=== PATIENT | female | born 1935 | race Caucasian/White ===

== ENCOUNTER → 2020-02-04 12:34 | Outpatient (BNVA) | payer MEDICARE, SELFPAY | PROVIDERS: PCP Internal Medicine; Visit Provider Internal Medicine Cardiovascular Disease | DX: R07.89 Other chest pain (principal); I25.10 Atherosclerotic heart disease of native coronary artery without angina pectoris; I49.1 Atrial premature depolarization; R06.02 Shortness of breath; Z79.82 Long term (current) use of aspirin | CPT/HCPCS: Q3014 ==

== ENCOUNTER 2020-05-23 07:54 | Outpatient (REF) | payer MEDICARE, SELFPAY ==
--- NOTE | 2020-05-24 09:43 | MHC.AU.P13 ---
Adult Audiological Evaluation Date of Visit: 05/23/20 World Geography Teacher Used: Not Applicable Reason for Appointment: Audiologic re-evaluation due to history of fluctuating hearing loss and middle ear dysfunction. Maryam reports she has seen Hose Suspender Cutter Dr. Dayron Leonardo in the past and during the last appointment, placements of pressure equalization tubes was discussed. Maryam was advised to consider this option and contact the office if she wants to pursue in the future. Previous Hearing Test Results: 12/02/2018 [facility] Right ear - Moderate to severe mixed hearing loss with 96% speech understanding at 80 dB HL Left ear - Moderate to severe mixed hearing loss with 92% speech understanding at 90 dB HL Ear History: Previous Ear Surgery: Right ear Ossiculoplasty in 2011 Blocked/Full Sensation in Ear(s): Both Ears Medical History: Medical History: High Blood Pressure Medication List: Metoprolol, Fish Oil, Vitamin D3, Asprin Hearing Instrument History- Right Ear: Medical Insurance Claims Specialist: Kareo Model: OnDeck B 50-P Serial Number: [id number] Battery Size: 13 Repair Warranty: 04/18/2022 Loss and Damage Warranty: 04/18/2020 Dispensed By: [facility] Date of Fittin01/28/2019 Hearing Instrument History- Left Ear: Medical Insurance Claims Specialist: [employer] Model: OnDeck B 50-P Serial Number: [id number] Battery Size: 13 Warranty: 04/18/2022 Loss and Damage Warranty: 04/18/2020 Dispensed By: [facility] Date of Fittin01/28/2019 Otoscopy: Right Ear: Unremarkable Left Ear: Unremarkable Tympanometry: Tympanometry performed due to: History of middle ear dysfunction Right Ear: Non-compliant Middle Ear System (Type B) Left Ear: Non-compliant Middle Ear System (Type B) Hearing Evaluation: Transducer(s) Used: Insert Earphones Bone Conduction Method: Conventional Audiometry Stimuli Used: Pure Tones Right Ear: Description of Hearing: Moderate to severe mixed hearing loss Left Ear: Description of Hearing: Moderate to severe mixed hearing loss Speech Recognition Threshold (SRT): Method Used: Monitored Live Voice Stimuli Used: Spondee Words Right Ear: 50 dB HL Left Ear: 50 dB HL Word Discrimination: Method: Recorded Lists Word Lists Used: NU-6 Right Ear: 96% at 85 dB HL Left Ear: 92% at 85 dB HL Comparison: Compared to most recent evaluation: Right ear thresholds have decreased 5-10 dB with the left ear thresholds improving 5-10 dB. Recommendations: Audiological re-evaluation in one year. Due to the fluctuating nature of the hearing loss which is likely related to changes in the amount of middle ear dysfunction, advise scheduling another appointment with Dr. Leonardo to discuss if placement of pressure equalization tubes is appropriate. Maryam reports that although today's results indicate a change in hearing levels, she has been comfortable with the settings of her hearing aids so no changes were made to the hearing aid programming. She may schedule another appointment if hearing aid adjustments are desired. Diagnosis: Primary Diagnosis: H90.6 Mixed Hearing Loss, Bilateral Secondary Diagnosis: H69.93 Unspecified Eustachian Tube Dysfunction, Bilateral Services Performed: Comprehensive Audiological Evaluation (CPT 48569) Tympanometry (CPT 01509) Signature: Provider: Viviane Harding, CCC-A
== END 2020-05-23 07:55 | disposition home or self-care (01) ==
LOC: HO.SH 07:54
PROVIDERS: Visit Provider Internal Medicine
DX: H90.6 Mixed conductive and sensorineural hearing loss, bilateral (principal); H69.93 Unspecified Eustachian tube disorder, bilateral
CPT/HCPCS: 92557; 92567

== ENCOUNTER 2020-10-20 09:58 | Outpatient (REF) | payer MEDICARE, SELFPAY ==
--- NOTE | ~2020-10-20 | MM_ITS ---
EXAMINATION: BONE DENSITOMETRY CLINICAL INDICATION: Asymptomatic menopausal state. COMPARISON: Previous BD dated 06/26/2018 and baseline BD dated 08/06/2007. TECHNIQUE: Using a NimbusBase DXA System (software version: 13.1) manufactured by [employer], dual-energy x-ray absorptiometry was performed of the spine and left hip. The images are of good technical quality. Summary results are attached. FINDINGS: AP SPINE L1-L4: Current: BMD 0.957 g/cm2, Z-score 0.7, T-score -1.9, osteopenia, 3.5% decrease from previous, 1.6% increase from baseline (<5% change is not significant). Prior: BMD 0.992 g/cm2. Baseline: BMD 0.942 g/cm2. LEFT FEMUR, NECK: Current: BMD 0.748 g/cm2, Z-score 0.8, T-score -2.1, osteopenia. Prior: BMD 0.799 g/cm2. Baseline: BMD 0.752 g/cm2. LEFT FEMUR, TOTAL: Current: BMD 0.768 g/cm2, Z-score 0.9, T-score -1.9, osteopenia, 2.2% decrease from previous, 5.2% decrease from baseline (<5% change is not significant). Prior: BMD 0.785 g/cm2. Baseline: BMD 0.810 g/cm2. IDENTIFIED RISK FACTORS: Osteoporosis, height loss, menopause. HISTORY OF FRACTURE: None listed. MEDICATIONS: Calcium supplements or multivitamin, vitamin D. MM/XR DEXA axial skeleton IMPRESSION: 1. DIAGNOSIS: Osteopenia based on the lowest T-score value of -2.1 in the femoral neck applying World Health Organization criteria. 2. 10-YEAR FRACTURE RISK PREDICTION, FRAX: Major osteoporotic fracture (clinical spine, forearm, hip or shoulder) 13.5%. Hip fracture 4.7%. 3. Treatment Recommendations: NOF guidelines recommend consideration for treatment in postmenopausal women and men age 50 and older presenting with the following: -A hip or vertebral (clinical or morphometric) fracture. -T-score less than or equal to -2.5 at the femoral neck or spine after appropriate evaluation to exclude secondary causes. -Low bone mass at the hip or spine and a 10-year fracture probability by FRAX of greater than or equal to 3% for hip fracture or greater than or equal to 20% for major osteoporotic fracture based on the [place] adapted WHO algorithm. 4. Other Recommendations: All treatment decisions require clinical judgment and consideration of individual patient factors, including patient preferences, comorbidities, previous drug use, risk factors not captured in the FRAX model (e.g. frailty, falls, vitamin D deficiency, increased bone turnover, interval significant decline in bone density) and possible under or overestimation of fracture risk by FRAX. Additional medical evaluation for secondary cause of low bone mineral density may be appropriate. FUTURE SCAN RECOMMENDATION: People with diagnosed cases of osteoporosis or at high risk for fracture should have regular bone mineral density tests. For patients eligible for Medicare, routine testing is allowed once every 2 years. The testing frequency can be increased to one year for patients who have rapidly progressing disease, those who are receiving or discontinuing medical therapy to restore bone mass, or have additional risk factors.
== END 2020-10-20 09:59 | disposition home or self-care (01) ==
LOC: HO.MAMMO 09:58
PROVIDERS: PCP Internal Medicine; Visit Provider Internal Medicine
DX: Z13.820 Encounter for screening for osteoporosis (principal); Z78.0 Asymptomatic menopausal state
CPT/HCPCS: 77080

== ENCOUNTER 2020-12-08 11:44 | Emergency (ER) | payer MEDICARE, SELFPAY ==
[2020-12-08 12:02] VITALS: BP 179/77; BP 180/87; PULSE 78; PULSE 82; RESP 16; TEMP 36.1; O2SAT 98; BMI 21.2
--- NOTE | 2020-12-08 12:14 | ED.GENADULT ---
HPI - General Adult General Chief complaint: General Medical Stated complaint: HIGH BLOOD PRESSURE 200/80 Time Seen by Provider: 12/08/20 12:08 Source: patient and EMS Mode of arrival: EMS Limitations: no limitations History of Present Illness HPI narrative: initially stated that one week ago she was given a metoprolol Rx and it was from a different lab that doesn't treat her BP but at this time it was found she is on the same Rx from September - so this isn't the culprit, her checking her BP every 5 minutes just elevated it. She denies symptoms but obviously there is a concern for some mild confusion - labs, UA, CT head ordered MD complaint: HTN at home Onset (ago): hour(s) (few) Severity: mild Relieving factors: none Exacerbating factors: other (made worse when she took her BP every 5 minutes) Associated symptoms: denies other symptoms Treatments prior to arrival: none Related Data Home Medications Medication Instructions Recorded Confirmed aspirin 81 mg tablet,delayed 81 mg PO DAILY 02/04/20 02/04/20 release (Adult Low Dose Aspirin) Previous Rx's Medication Instructions Recorded metoprolol succinate 100 mg 100 mg PO DAILY 90 Days #90 tab 11/17/20 tablet,extended release 24 hr nitroglycerin 0.4 mg sublingual 0.4 mg SUBLINGUAL Q5M PRN #27 tab 11/17/20 tablet Allergies Allergy/AdvReac Type Severity Reaction Status Date / Time epinephrine [EPINEPHRINE] Allergy Severe CHEST Unverified 12/03/19 15:29 POUNDING, palpitations, palpitations Hzevuqi-Hes-Xsc Reductase Allergy Intermediate MUSCLE Unverified 12/03/19 15:29 Inhibitor PAINS [[id number] REDUCTASE INHIBITOR] [place] AdvReac Unknown Muscle pain Uncoded 09/04/19 00:00 Review of Systems Review of Systems: Constitutional : No Weight loss, No Fever, No Chills, No Fatigue, No Malaise ENT/Mouth : No sore throat, No Rhinorrhea Eyes: No Eye Pain, No Swelling, No Redness Cardiovascular : No Chest Pain, No SOB, No Dyspnea on Exertion, No Orthopnea, No Edema, No Palpitations Respiratory : No Cough, No Sputum, No Wheezing Gastrointestinal : No Nausea, No Vomiting, No Diarrhea, No Constipation, No abdominal Pain, No Hematochezia, No Melena Genitourinary : No Dysuria, No Urinary Frequency, No Hematuria, Musculoskeletal : No joint pain, No Myalgias, No Joint Swelling Skin : No Skin Lesions, No rash Neuro : No Weakness, No Numbness, No Dizziness, No Headache Psych : pos Anxiety/Panic, No Depression Heme/Lymph: No Bruising, No Bleeding,No Lymphadenopathy Endocrine : No Polyuria, No Polydipsia All other systems reviewed and are negative [facility] Past Medical History Attestation statement: The following information was validated with the patient. Medical History CAD (coronary artery disease) Difficulty hearing HTN (hypertension) PAC (premature atrial contraction) Surgical History Hx of cardiac cath Family History Family History Father CVD (cardiovascular disease) Mother No problems noted. Social History Social History (Updated 12/08/20 @ 12:39 by Kristyn Robledo DO) Patient Tobacco Use Status: Never used Tobacco Use of substances other than those prescribed or required for medical reasons: No Advance Directives: Yes Advance Directives Information Provided: No Advance Directives on File: No Physical Exam Vital Signs: Vital Signs: Last Vital Signs Temp 97 F 12/08/20 12:02 Pulse 78 12/08/20 12:02 Resp 16 12/08/20 12:02 BP 179/77 H 12/08/20 12:02 Pulse Ox 98 12/08/20 12:02 Body Mass Index 21.2 Appearance: Alert. Oriented X3. No acute distress. Eyes: Pupils equal, round and reactive to light. ENT: Pharynx normal. Neck: Normal inspection. Neck supple. CVS: Normal heart rate and rhythm. Pulses normal. Respiratory: No respiratory distress. Breath sounds normal. Abdomen: Soft and non-tender. Skin: Skin warm and dry. Normal skin color. Normal skin turgor. Extremities: No lower extremity edema. No calf ttp Neuro: Oriented X 3. No motor deficit. No sensory deficit. Course Course Course Narrative: VNA possibly for CM - needs more help at home does not want CT scan done - GCS 15 aware I was looking due to confusion Medical Decision Making MDM Narrative Medical decision making narrative: 85 yo female with atypical chest pain, CAD< HTN, PACs here with reported wrong metoprolol but in fact I checked with pharmacy and this is not the case - at this time given the medication is not the issue will obtain basic labs UA and CT head for possible ICH though could be anxiety dispo per results and findings. Lab Data Result diagrams: 12/08/20 12:32 12/08/20 12:32 Labs: Lab Results 12/08/20 12/08/20 12/08/20 Range/Units 12:32 12:32 13:47 WBC 7.8 (4.8-10.8) X10*3/uL RBC 4.75 (4.20-5.50) X10*6/uL Hgb 14.5 (12.0-16.0) g/dl Hct 42.7 (37-47) % MCV 89.9 (80-98) fL MCH 30.5 (27.0-33.0) pg MCHC 34.0 (31.0-35.0) g/dl RDW 12.6 (11.0-16.0) % Plt Count 276 (160-400) X10*3/uL MPV 9.5 (9.4-12.3) fL Immature Gran % (Auto) 0.3 (0.0-0.4) % Neut % (Auto) 57.0 (45-73) % Lymph % (Auto) 32.3 (20-40) % [place] % (Auto) 8.4 (2-11) % Eos % (Auto) 1.7 (0-4) % Baso % (Auto) 0.3 (0-2) % Lymph # (Auto) 2.5 (1.2-4.9) X10*3/uL [place] # (Auto) 0.7 (0.1-1.2) X10*3/uL Eos # (Auto) 0.1 (0.0-0.4) X10*3/uL Baso # (Auto) 0.0 (0.0-0.2) X10*3/uL Abs Immat Gran (auto) 0.02 (0.00-0.03) X10*3/uL Absolute Neuts (auto) 4.5 (2.0-8.3) X10*3/uL Absolute Nucleated RBC 0.000 (0.0-0.012) X10*3/uL Nucleated RBC % (auto) 0.0 (0.0-0.2) /100WBC Sodium 141 (135-145) mmol/L Potassium 4.3 (3.3-5.1) mmol/L Chloride 105 (96-108) mmol/L Carbon Dioxide 29 (22-29) mmol/L Anion Gap 11 L (12-20) BUN 10 (9-16) mg/dL Creatinine 0.66 (0.5-1.4) mg/dL Estim Creat Clear Calc 41.7 Estimated GFR > 60 Random Glucose 109 (60-115) mg/dL Calcium 9.4 (8.4-10.2) mg/dL TSH 0.61 (0.32-4.0) uIU/mL Urine Color STRAW Urine Appearance CLEAR Urine pH 7.5 (5.0-8.0) Ur Specific [place] <= 1.005 (1.005-1.025) Urine Protein NEG (NEG-TRACE) MG/DL Urine Glucose (UA) NEG (NEG) MG/DL Urine Ketones NEG (NEG) MG/DL Urine Blood NEG (NEG) Urine Nitrite NEG (NEG) Ur Leukocyte Esterase NEG (NEG) Discharge Plan Discharge Clinical Impression: HTN (hypertension) Qualifiers: Hypertension type: unspecified Qualified Code(s): I10 - Essential (primary) hypertension Patient Disposition: Home, Self-Care Instructions: Chronic Hypertension (ED) Additional Instructions: return to ED for any worsening symptoms or concerns CBC, lytes, renal function and UA normal, TSH yenny Prescriptions: No Action metoprolol succinate 100 mg tablet extended release 24 hr 100 mg PO DAILY 90 Days Qty: 90 RF: 3 nitroglycerin 0.4 mg tablet, sublingual 0.4 mg sublingual Q5M PRN (Reason: chest pain) Qty: 27 RF: 2 aspirin [Adult Low Dose Aspirin] 81 mg tablet,delayed release (DR/EC) 81 mg PO DAILY RF: 0 Referrals: Riaz Da Silva MD [Primary Care Provider] - 2 days (if not better)
[2020-12-08 12:41] LABS: MANUAL DIFF FLAG NO
[2020-12-08 12:44] LABS: Basophils Percent Auto 0.3 % (0-2); Eosinophils Absolute Auto 0.1 X10*3/uL (0.0-0.4); Eosinophils Percent Auto 1.7 % (0-4); Hematocrit 42.7 % (37-47); Hemoglobin 14.5 g/dl (12.0-16.0); Imm Gran Abs Auto 0.02 X10*3/uL (0.00-0.03); Imm Gran Pct Auto 0.3 % (0.0-0.4); Lymphocytes Absolute Auto 2.5 X10*3/uL (1.2-4.9); Lymphocytes Percent Auto 32.3 % (20-40); Mean Corpuscular Hemoglobin 30.5 pg (27.0-33.0); Mean Corpuscular Volume 89.9 fL (80-98); Mean Platelet Volume 9.5 fL (9.4-12.3); Monocytes Absolute Auto 0.7 X10*3/uL (0.1-1.2); Monocytes Percent Auto 8.4 % (2-11); Neutrophils Absolute Auto 4.5 X10*3/uL (2.0-8.3); Platelet Count 276 X10*3/uL (160-400); Red Blood Count 4.75 X10*6/uL (4.20-5.50); Red Cell Distribution Width 12.6 % (11.0-16.0); White Blood Count 7.8 X10*3/uL (4.8-10.8)
[2020-12-08 13:06] LABS: Anion Gap 11 (12-20); Blood Urea Nitrogen 10 mg/dL (9-16); Calcium 9.4 mg/dL (8.4-10.2); Carbon Dioxide 29 mmol/L (22-29); Chloride 105 mmol/L (96-108); Creatinine Clr Calc Pharmacy 41.7; Estimated Glomerular Filt Rate > 60; Glucose Random 109 mg/dL (60-115); Potassium 4.3 mmol/L (3.3-5.1); Sodium 141 mmol/L (135-145)
[2020-12-08 13:27] LABS: TSH reflex Free T4 0.61 uIU/mL (0.32-4.0)
--- NOTE | 2020-12-08 13:38 | MHC.CM.ED ---
Received case management consult from Dr Robledo. Patient came to the ER due to high blood pressure. Work up essentially negative. VNA is requested. Met with patient and daughter, Gabbi in regards to discharge planning. Patient lives with her , ambulates independently and had no services prior to coming to the ER. Gabbi is hoping to get services for her dad. Patient's has advanced dementia. Patient provides most of the care for her . Patient's is a [place]. [facility] [place]. Patient and Gabbi verbalize understanding and dont' feel patient has any VNA needs. Dr Robledo aware. Continue to monitor for d/c needs.
[2020-12-08 14:12] LABS: Appearance Urine CLEAR; Color Urine STRAW; Glucose Urine UA NEG (NEG); Leukocyte Esterase Urine NEG (NEG); Nitrite Urine NEG (NEG); PH 7.5 (5.0-8.0); Specific Gravity - Urine <= 1.005 (1.005-1.025); Urine Blood NEG (NEG); Urine Ketones NEG (NEG); Urine Protein NEG (NEG-TRACE)
== END 2020-12-08 14:36 | disposition home or self-care (01) ==
PROVIDERS: Emergency Provider Emergency Medicine; PCP Internal Medicine
DX: I10 Essential (primary) hypertension (principal); I25.10 Atherosclerotic heart disease of native coronary artery without angina pectoris; Z79.899 Other long term (current) drug therapy
CPT/HCPCS: 36415; 80048; 81003; 84443; 85025; 99283

== ENCOUNTER → 2021-02-02 13:44 | Outpatient (BNVA) | payer MEDICARE, SELFPAY | PROVIDERS: PCP Internal Medicine; Referring Provider Internal Medicine; Visit Provider Internal Medicine Cardiovascular Disease | DX: I25.10 Atherosclerotic heart disease of native coronary artery without angina pectoris (principal); I10 Essential (primary) hypertension; I49.1 Atrial premature depolarization; Z98.890 Other specified postprocedural states; Z82.49 Family history of ischemic heart disease and other diseases of the circulatory system; Z79.82 Long term (current) use of aspirin; Z79.899 Other long term (current) drug therapy | CPT/HCPCS: 93005; 99212 ==

== ENCOUNTER → 2021-06-07 10:43 | Outpatient (REF) | payer MEDICARE, SELFPAY ==
--- NOTE | 2021-06-07 10:46 | HM_ITS ---
* Total monitoring time 9 days and 1 hour. * Underlying rhythm is sinus. Average rate 67/Min. Range 51 to 104/Min. * No atrial fibrillation or flutter or AV blocks or pauses. * Occasional supraventricular ectopy. Low burden. Brief runs,but nothing prolonged. * Rare ventricular ectopy with minimal burden. * No patient events. MTDD
== END ==
LOC: HO.CARD 10:43
PROVIDERS: Visit Provider Internal Medicine Cardiovascular Disease
DX: I49.1 Atrial premature depolarization (principal); R00.2 Palpitations
CPT/HCPCS: 93242

== ENCOUNTER 2021-08-22 09:11 | Outpatient (REF) | payer MEDICARE, SELFPAY ==
[2021-08-22 11:29] LABS: Appearance Urine CLEAR; Color Urine YELLOW; Glucose Urine UA NEG (NEG); Leukocyte Esterase Urine NEG (NEG); Nitrite Urine NEG (NEG); PH 5.5 (5.0-8.0); Specific Gravity - Urine >= 1.030 (1.005-1.025); Urine Blood NEG (NEG); Urine Ketones NEG (NEG); Urine Protein NEG (NEG-TRACE)
[2021-08-22 12:00] LABS: Alanine Aminotransferase 18 U/L (0-31); Albumin Level 4.2 g/dL (3.5-5.0); Alkaline Phosphatase 65 U/L (39-117); Anion Gap 14 (12-20); Aspartate Amino Transferase 20 U/L (5-31); Bilirubin Total 0.6 mg/dL (0.0-1.0); Blood Urea Nitrogen 19 mg/dL (9-16); Calcium 9.3 mg/dL (8.4-10.2); Carbon Dioxide 28 mmol/L (22-29); Chloride 105 mmol/L (96-108); Estimated Glomerular Filt Rate > 60; Glucose Random 112 mg/dL (60-115); Potassium 4.5 mmol/L (3.3-5.1); Sodium 142 mmol/L (135-145); Total Protein 6.9 g/dL (6.5-8.0)
[2021-08-22 12:15] LABS: Estimated Average Glucose 103 mg/dL; Hemoglobin A1c % 5.2 %
[2021-08-22 12:22] LABS: Vitamin B12 362 pg/mL (200-900)
[2021-08-22 12:24] LABS: TSH reflex Free T4 0.68 uIU/mL (0.32-4.0)
[2021-08-26 13:07] LABS: Vitamin D 25-OH, D2 <4 ng/mL; Vitamin D 25-OH, D3 37 ng/mL; Vitamin D 25-OH, Total 37 ng/mL (30-100)
== END 2021-08-22 09:12 | disposition home or self-care (01) ==
LOC: HO.HMGCLDS 09:11
PROVIDERS: PCP Internal Medicine; Visit Provider Internal Medicine
DX: F41.1 Generalized anxiety disorder (principal); I10 Essential (primary) hypertension; I25.10 Atherosclerotic heart disease of native coronary artery without angina pectoris; I49.1 Atrial premature depolarization; R00.2 Palpitations; R35.81 Nocturnal polyuria; Z91.09 Other allergy status, other than to drugs and biological substances; R53.83 Other fatigue; R35.89 Other polyuria; R63.1 Polydipsia
CPT/HCPCS: 36415; 80053; 81003; 82306; 82607; 83036; 84443

== ENCOUNTER 2021-08-24 11:20 | Outpatient (REF) | payer MEDICARE, SELFPAY ==
--- NOTE | 2021-08-28 07:43 | MHC.AU.AHA ---
Adult Audiological Evaluation Date of Visit: 08/24/21 Slot Operations Director Used: Not Applicable Reason for Appointment: Audiologic re-evaluation due to perceived decrease in hearing ability. Maryam has a history of fluctuating mixed hearing loss and bilateral middle ear dysfunction. Following last year's hearing test, follow-up with the ENT was discussed if the fluctuating loss was bothersome, but Maryam did not feel it was necessary at that time. 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 She is also currently experiencing a sore behind the right ear and questions if it is irritation from the combination of wearing her hearing aids, glasses, and face mask. Previous Hearing Test Results: 05/23/2020 [facility] Moderate to severe mixed hearing loss with non-functioning middle ear systems bilaterally. Ear History: Blocked/Full Sensation in Ear(s): Both Ears Medical History: Medical History: High Blood Pressure, Right ear Ossiculoplasty in 2011 Medication List: Metoprolol, Amlodipine, Fish Oil, Vitamin D3, Aspirin Hearing Instrument History- Right Ear: Powder Guard: [employer] Model: [employer] B 50-P Serial Number: [id number] Battery Size: 13 Repair Warranty: 04/18/2022 Loss and Damage Warranty: 04/18/2011 Dispensed By: [facility] Date of Fittin01/28/2019 Hearing Instrument History- Left Ear: Powder Guard: Phonak Model: [employer] B 50-P Serial Number: [id number] Battery Size: 13 Warranty: 04/18/2022 Loss and Damage Warranty: 04/18/2022 Dispensed By: [facility] Date of Fittin01/28/2019 Otoscopy: Right Ear: Lesion on pinna & redness behind pinna as noted above Left Ear: Unremarkable Tympanometry: Tympanometry performed due to: History of middle ear dysfunction Right Ear: Negative Middle Ear Pressure (Type C) Left Ear: Negative Middle Ear Pressure (Type C) Hearing Evaluation: Transducer(s) Used: Insert Earphones Bone Conduction Method: Conventional Audiometry Stimuli Used: Pure Tones Right Ear: Description of Hearing: Moderate sloping to severe mixed hearing loss Left Ear: Description of Hearing: Moderate to moderately-severe mixed hearing loss Speech Recognition Threshold (SRT): Method Used: Monitored Live Voice Stimuli Used: Spondee Words Right Ear: 45 dB HL Left Ear: 45 dB HL Word Discrimination: Method: Recorded Lists Word Lists Used: NU-6 Right Ear: 80% at 85 dB HL Left Ear: 92% at 85 dB HL Comparison: Compared to the most recent evaluation: Thesholds have decreased in the right ear and Middle ear dysfunction persists bilaterally. Recommendations: Referral to Ear, Nose, and Throat to address middle ear dysfunction. Follow-up with the Chief Financial Officer regarding the new sore behind the right pinna. Hearing aid maintenance performed today. Hearing aid(s) reprogrammed with updated test results. Audiological re-evaluation in one year. Will send a reminder card. Diagnosis: Primary Diagnosis: H90.6 Mixed Hearing Loss, Bilateral Secondary Diagnosis: H69.93 Unspecified Eustachian Tube Dysfunction, Bilateral Services Performed: Comprehensive Audiological Evaluation (CPT 28824) Tympanometry (CPT 54690) Signature: Provider: Viviane Harding, CCC-A
--- NOTE | 2021-08-28 07:53 | MHC.AU.AHA ---
Adult Audiological Evaluation Date of Visit: 08/24/21 File Clerk Data Entry Used: Not Applicable Reason for Appointment: Audiologic re-evaluation due to perceived decrease in hearing ability. Maryam has a history of fluctuating mixed hearing loss and bilateral middle ear dysfunction. Following last year's hearing test, follow-up with the ENT was discussed if the fluctuating loss was bothersome, but Maryam did not feel it was necessary at that time. 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 She is also currently experiencing a sore behind the right ear and questions if it is irritation from the combination of wearing her hearing aids, glasses, and face mask. Previous Hearing Test Results: 05/23/2020 [facility] Moderate to severe mixed hearing loss with non-functioning middle ear systems bilaterally. Ear History: Blocked/Full Sensation in Ear(s): Both Ears Medical History: Medical History: High Blood Pressure Medical History: Right ear Ossiculoplasty in 2011 Medication List: Metoprolol, Amlodipine, Fish Oil, Vitamin D3, Aspirin Hearing Instrument History- Right Ear: Office Assistance: Phonak Model: Wingu B 50-P Serial Number: [id number] Battery Size: 13 Repair Warranty: 04/18/2022 Loss and Damage Warranty: 04/18/2011 Dispensed By: [facility] Date of Fittin01/28/2019 Hearing Instrument History- Left Ear: Office Assistance: Phonak Model: Wingu B 50-P Serial Number: [id number] Battery Size: 13 Warranty: 04/18/2022 Loss and Damage Warranty: 04/18/2022 Dispensed By: [facility] Date of Fittin01/28/2019 Otoscopy: Right Ear: Lesion on pinna & redness behind pinna as noted above Left Ear: Unremarkable Tympanometry: Tympanometry performed due to: History of middle ear dysfunction Right Ear: Negative Middle Ear Pressure (Type C) Left Ear: Negative Middle Ear Pressure (Type C) Hearing Evaluation: Transducer(s) Used: Insert Earphones Bone Conduction Method: Conventional Audiometry Stimuli Used: Pure Tones Right Ear: Description of Hearing: Moderate sloping to severe mixed hearing loss Left Ear: Description of Hearing: Moderate to moderately-severe mixed hearing loss Speech Recognition Threshold (SRT): Method Used: Monitored Live Voice Stimuli Used: Spondee Words Right Ear: 45 dB HL Left Ear: 45 dB HL Word Discrimination: Method: Recorded Lists Word Lists Used: NU-6 Right Ear: 80% at 85 dB HL Left Ear: 92% at 85 dB HL Comparison: Compared to the most recent evaluation: [place] have decreased in the right ear Middle ear dysfunction persists bilaterally. Recommendations: Referral to Ear, Nose, and Throat to address middle ear dysfunction. Follow-up with the Credit Consultant regarding the new sore behind the right pinna. Hearing aid maintenance performed today. Hearing aid(s) reprogrammed with updated test results. Audiological re-evaluation in one year. Diagnosis: Primary Diagnosis: H90.6 Mixed Hearing Loss, Bilateral Secondary Diagnosis: H69.93 Unspecified Eustachian Tube Dysfunction, Bilateral Services Performed: Comprehensive Audiological Evaluation (CPT 67489) Tympanometry (CPT 82913) Signature: Provider: Damon Harding, CCC-A
== END 2021-08-24 11:21 | disposition home or self-care (01) ==
LOC: HO.SH 11:20
PROVIDERS: Visit Provider Internal Medicine
DX: Z01.118 Encounter for examination of ears and hearing with other abnormal findings (principal); H90.6 Mixed conductive and sensorineural hearing loss, bilateral; H69.93 Unspecified Eustachian tube disorder, bilateral
CPT/HCPCS: 92557; 92567

== ENCOUNTER → 2022-02-05 13:25 | Outpatient (BNVA) | payer MEDICARE, SELFPAY | PROVIDERS: PCP Internal Medicine; Referring Provider Internal Medicine; Visit Provider Internal Medicine Cardiovascular Disease | DX: I25.10 Atherosclerotic heart disease of native coronary artery without angina pectoris (principal); I49.1 Atrial premature depolarization; I10 Essential (primary) hypertension | CPT/HCPCS: 93005; 99212 ==

== ENCOUNTER → 2022-07-23 09:27 | Outpatient (REF) | payer MEDICARE, SELFPAY ==
--- NOTE | 2022-07-23 09:30 | HM_ITS ---
* Total monitoring time 3 days. * Underlying rhythm is sinus. Average ventricular rate 69/Min. Range 53 to 106/Min. * Occasional supraventricular ectopy with a burden of about 1%. Short runs noted. Nothing sustained. * Occasional ventricular ectopy. Rare couplets. * No significant pauses or AV blocks. * Patient marker used twice, in no cessation with sinus rhythm/PVCs. Palpitations in diary correlates with PVCs. MTDD
== END ==
LOC: HO.CARD 09:27
PROVIDERS: PCP Internal Medicine; Visit Provider Internal Medicine Cardiovascular Disease
DX: I49.1 Atrial premature depolarization (principal); R00.0 Tachycardia, unspecified
CPT/HCPCS: 93242

== ENCOUNTER 2022-07-24 13:38 | Outpatient (REF) | payer MEDICARE, SELFPAY ==
[2022-07-24 16:44] LABS: MANUAL DIFF FLAG NO
[2022-07-24 16:48] LABS: Basophils Absolute Auto 0.1 X10*3/uL (0.0-0.2); Basophils Percent Auto 0.6 % (0-2); Eosinophils Absolute Auto 0.2 X10*3/uL (0.0-0.4); Eosinophils Percent Auto 2.4 % (0-4); Hematocrit 41.6 % (37.0-47.0); Hemoglobin 13.8 g/dl (12.0-16.0); Imm Gran Abs Auto 0.02 X10*3/uL (0.00-0.03); Imm Gran Pct Auto 0.2 % (0.0-0.4); Lymphocytes Absolute Auto 3.4 X10*3/uL (1.2-4.9); Lymphocytes Percent Auto 38.5 % (20-40); Mean Corpuscular HGB Conc 33.2 g/dl (31.0-35.0); Mean Corpuscular Hemoglobin 29.6 pg (27.0-33.0); Mean Corpuscular Volume 89.3 fL (80.0-98.0); Mean Platelet Volume 10.2 fL (9.4-12.3); Monocytes Absolute Auto 0.7 X10*3/uL (0.1-1.2); Neutrophils Absolute Auto 4.5 x10*3/uL (2.0-8.3); Neutrophils Percent Auto 50.3 % (45-73); Platelet Count 287 X10*3/uL (160-400); Red Blood Count 4.66 X10*6/uL (4.20-5.50); Red Cell Distribution Width 12.4 % (11.0-16.0); White Blood Count 8.9 X10*3/uL (4.8-10.8)
[2022-07-24 17:48] LABS: Alanine Aminotransferase 15 U/L (0-31); Albumin Level 4.1 g/dL (3.5-5.0); Alkaline Phosphatase 55 U/L (39-117); Anion Gap 13 (12-20); Aspartate Amino Transferase 20 U/L (5-31); Bilirubin Total 0.7 mg/dL (0.0-1.0); Blood Urea Nitrogen 16 mg/dL (9-16); Calcium 9.4 mg/dL (8.4-10.2); Carbon Dioxide 28 mmol/L (22-29); Chloride 106 mmol/L (96-108); Estimated Glomerular Filt Rate > 60; Glucose Random 87 mg/dL (60-115); Potassium 4.5 mmol/L (3.3-5.1); Sodium 142 mmol/L (135-145); Total Protein 6.4 g/dL (6.5-8.0)
== END 2022-07-24 13:39 | disposition home or self-care (01) ==
LOC: HO.HMGCLDS 13:38
PROVIDERS: PCP Internal Medicine; Visit Provider Internal Medicine
DX: I10 Essential (primary) hypertension (principal); F41.1 Generalized anxiety disorder; R00.2 Palpitations; Z91.09 Other allergy status, other than to drugs and biological substances
CPT/HCPCS: 36415; 80053; 85025

== ENCOUNTER → 2022-12-04 12:43 | Outpatient (REF) | payer MEDICARE, SELFPAY ==
--- NOTE | 2022-12-04 12:46 | HM_ITS ---
Conclusion: 1. Patient was monitored for total period of 3 days 2. Baseline was normal sinus rhythm with average heart of 69 beats per minute 3. Occasional PACs and PVCs noted with 15 short runs of SVT longest lasting 7 beats and the fastest at 150 beats per minute 4. No significant pauses noted 5. Patient reported 3 events correlating with isolated PVCs MTDD
== END ==
LOC: HO.CARD 12:43
PROVIDERS: PCP Internal Medicine; Visit Provider Internal Medicine Cardiovascular Disease
DX: R00.2 Palpitations (principal); I49.1 Atrial premature depolarization
CPT/HCPCS: 93242

== ENCOUNTER → 2022-12-04 12:46 | Outpatient (BNV) | payer MEDICARE, SELFPAY | PROVIDERS: PCP Internal Medicine; Visit Provider Internal Medicine Cardiovascular Disease | DX: I47.1 Supraventricular tachycardia (principal) | CPT/HCPCS: 93244 ==

== ENCOUNTER 2022-12-25 11:08 | Outpatient (AMB) | payer MEDICARE, SELFPAY ==
[2022-12-25 11:10] VITALS: BP 166/62; PULSE 85; O2SAT 99; BMI 20.2
--- NOTE | 2022-12-25 11:10 | MHC.PC.OV ---
Vital Signs 12/25/22 11:10 Height 4 ft 11 in Weight 100 lb BMI 20.2 BP 166/62 H Blood Pressure Location Rt brachial Position Sitting Pulse 85 Pulse Source Pulse Oximeter Pulse Oximetry (%) 99 Oxygen Delivery Method Room Air Intake Visit Reasons: discuss medication for anxiety Allergies epinephrine [EPINEPHRINE] Allergy (Severe, Verified 12/25/22 11:10) CHEST POUNDING, palpitations, palpitations Beefing-HAH-NwE Reductase Inhibitor [BFOTHLT-NXB-KJB REDUCTASE INHIBITOR] Allergy (Intermediate, Verified 12/25/22 11:10) MUSCLE PAINS Ezetimbie Adverse Reaction (Unknown, Uncoded 07/24/22 13:17) Muscle pain Medication List - Last Reconciled 12/25/22 by Riaz Da Silva MD amlodipine 5 mg (2 x 2.5 mg) PO DAILY 90 days aspirin (Adult Low Dose Aspirin) 81 mg PO DAILY coenzyme Q10 (Co Q-10) PO DAILY metoprolol succinate ER 100 mg PO DAILY nitroglycerin 0.4 mg sublingual Q5M PRN omega-3 fatty acids (Fish Oil Concentrate) PO DAILY Tobacco use date assessed: 12/25/22 Fall risk assessment: No Falls in past year Last assessed Fall Risk: 12/25/22 Dental Screening Dental Screen Date: 12/25/22 Did you have a dental visit in the last 12 months?: No Did you have a dental problem in the last 6 months where you did not have access to dental care?: No Was dental information given to patient?: Patient declined HPI discuss medication for anxiety HPI Details Patient is 87-year-old female came in today with her daughter to talk about feeling depressed and anxious Patient is feeling lonely since the passing of She continued to have palpitations and her daughter is worried. She recently had a Holter monitor through Cardiology as well which did not show any malignant arrhythmia. Patient was reassured through Cardiology office I have read last cardiology note from January of last year to the daughter and printed and handed to her. Patient have known obstructive coronary artery disease seen on cardiac catheterization it was recommended that she be on statin therapy which patient is declining. She does have PACs and PVCs. And is currently taking metoprolol 100 mg daily Her blood pressure is elevated today and it seems it is-patient is anxious. 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 But she agrees to taking the medication now. I would also like to repeat labs today. I have told her that she can take extra dose of amlodipine 2.5 mg if needed. Currently she is on 5 mg We will book a telemedicine visit to follow-up in 3 weeks [facility] Medical History Difficulty hearing CAD (coronary artery disease) PAC (premature atrial contraction) HTN (hypertension) Surgical History Hx of cardiac cath Family History Father CVD (cardiovascular disease) Mother No problems noted. Social History Housing: House Patient Tobacco Use Status: Never used Tobacco e-Cigarette/Vaping Use: Never Used Second Hand Smoke Exposure: No service: No Current occupational status: retired Cognitive needs: No Hearing needs: No Vision needs: Yes Questionnaire PHQ-9 Over the last 2 weeks, how often have you been bothered by any of the following problems? 1. Little interest or pleasure in doing things: several days 2. Feeling down, depressed, or hopeless: nearly every day 3. Trouble falling or staying asleep, or sleeping too much: not at all 4. Feeling tired or having little energy: nearly every day 5. Poor appetite or overeating: not at all 6. Feeling bad about yourself - or that you are a failure or have let yourself or your family down: not at all 7. Trouble concentrating on things, such as reading the newspaper or watching television: several days 8. Moving or speaking so slowly that other people could have noticed. Or the opposite - being so fidgety or restless that you have been moving around a lot more than usual: not at all 9. Thoughts that you would be better off or of hurting yourself in some way: not at all Total score: 8 Depression Screening Interpretation: Negative Depression Screening Done: Yes 90203 - PHQ-9 Billing: Yes Source: Developed by Tomas Syedet B.W. Moise, Omar Renteria and colleagues, with an educational belkis from [employer]. Thrive Questionnaire Date Thrive assessed: 07/24/22 AUDIT C Alcohol Use Questionnaire (AUDIT-C) 1. How often do you have a drink containing alcohol?: Never 3. How often do you have six or more drinks on one occasion?: Never Total Score: 0 Score Reviewed/Action Taken: Yes RC-7 AMB Questionnaire RC-7 Date RC - 7 assessed: 07/24/22 Source: Developed by Drs. Gutierrez Mays, Sarita Phipps, Omar Renteria and colleagues, with an educational belkis from [employer]. Review of Systems Const Denies chills and Denies fever(s) ENT Denies epistaxis and Denies nasal discharge Card Denies chest pain Resp Denies chest congestion, Denies cough and Denies hemoptysis GI Denies diarrhea and Denies nausea Skin/Breast Denies rash Neuro Reports no additional complaints Psych Reports no additional complaints Endo Reports no additional complaints Physical exam (Primary Care) Vital Signs: Last Vital Signs Pulse 85 12/25/22 11:10 BP 166/62 H 12/25/22 11:10 Pulse Ox 99 12/25/22 11:10 Oxygen Delivery Method Room Air 12/25/22 11:10 BMI result Body Mass Index 20.2 Tobacco/Smoking Status: Tobacco use Status Tobacco use date assessed 12/25/22 12/25/22 11:11 Patient Tobacco Use Status Never used Tobacco 12/25/22 11:11 e-Cigarette/Vaping Use Never Used 12/25/22 11:11 PHQ-9: PHQ-9 Score PHQ-9: Total score 8 12/25/22 11:40 Depression Screening Interpretation: Negative Thrive Assessment: Date of Thrive Assessment Date Thrive assessed 07/24/22 12/25/22 11:11 Const General: cooperative, comfortable and no acute distress Orientation/consciousness: patient oriented x3 HENMT Head: Yes normocephalic Eyes General: appearance normal, both eyes and all related structures Neck Neck: Yes supple Resp Effort & Inspection: normal respiratory effort, no cough and no stridor Cardio Rhythm: regular rhythm Heart sounds: S1 normal heart sound present and S2 normal heart sound present Skin General skin exam: turgor normal Neuro General: patient oriented x3, tone normal and moves all extremities Extrem Right lower extremity: no edema Left lower extremity: no edema Assessment and Plan Assessment & Plan (1) PAC (premature atrial contraction): Code(s): I49.1 - Atrial premature depolarization (2) CAD (coronary artery disease): Comment: Nonobstructive by cardiac catheterization Code(s): I25.10 - Atherosclerotic heart disease of [place] coronary artery without angina pectoris Qualifiers: Coronary Disease-Associated Artery/Lesion type: [place] artery [place] vs. transplanted heart: [place] heart Associated angina: without angina Qualified Code(s): I25.10 - Atherosclerotic heart disease of [place] coronary artery without angina pectoris (3) Anxiety, generalized: Code(s): F41.1 - Generalized anxiety disorder (4) Hypertension, essential: Code(s): I10 - Essential (primary) hypertension (5) Memory change: Code(s): R41.3 - Other amnesia Plan Patient is 87-year-old female came in today with her daughter to talk about feeling depressed and anxious Patient is feeling lonely since the passing of She continued to have palpitations and her daughter is worried. She recently had a Holter monitor through Cardiology as well which did not show any malignant arrhythmia. Patient was reassured through Cardiology office I have read last cardiology note from January of last year to the daughter and printed and handed to her. Patient have known obstructive coronary artery disease seen on cardiac catheterization it was recommended that she be on statin therapy which patient is declining. She does have PACs and PVCs. And is currently taking metoprolol 100 mg daily Her blood pressure is elevated today and it seems it is-patient is anxious. 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 But she agrees to taking the medication now. I would also like to repeat labs today. I have told her that she can take extra dose of amlodipine 2.5 mg if needed. Currently she is on 5 mg We will book a telemedicine visit to follow-up in 3 weeks Wanted cognitive testing for the patient for that I have placed a referral to Neurology after discussing the patient Orders: Orders Complete Blood Count Auto Diff Today F41.1 - Generalized anxiety disorder, I10 - Essential (primary) hypertension, I25.10 - Atherosclerotic heart disease of [place] coronary artery without angina pectoris, I49.1 - Atrial premature depolarization, R41.3 - Other amnesia Comprehensive Met. Panel Today F41.1 - Generalized anxiety disorder, I10 - Essential (primary) hypertension, I25.10 - Atherosclerotic heart disease of [place] coronary artery without angina pectoris, I49.1 - Atrial premature depolarization, R41.3 - Other amnesia TSH reflex Free T4 Today F41.1 - Generalized anxiety disorder, I10 - Essential (primary) hypertension, I25.10 - Atherosclerotic heart disease of [place] coronary artery without angina pectoris, I49.1 - Atrial premature depolarization, R41.3 - Other amnesia Medications: Refilled escitalopram oxalate 5 mg PO DAILY 30 days 30 tabs 0RF escitalopram oxalate 5 mg PO DAILY 30 days 30 tabs 0RF Coding Level of Care Code Est Pt Level 4 (23607) Diagnoses PAC (premature atrial contraction) I49.1 Coronary artery disease involving [place] coronary artery of [place] heart without angina pectoris I25.10 Coronary Disease-Associated Artery/Lesion type: [place] artery [place] vs. transplanted heart: [place] heart Associated angina: without angina Anxiety, generalized F41.1 Hypertension, essential I10 Memory change R41.3
== END 2022-12-25 15:01 | disposition home or self-care (01) ==
PROVIDERS: PCP Internal Medicine; Visit Provider Internal Medicine
DX: I49.1 Atrial premature depolarization (principal); I25.10 Atherosclerotic heart disease of native coronary artery without angina pectoris; F41.1 Generalized anxiety disorder; I10 Essential (primary) hypertension; R41.3 Other amnesia
CPT/HCPCS: 99214

== ENCOUNTER 2022-12-25 11:39 | Outpatient (REF) | payer MEDICARE, SELFPAY | END 2022-12-25 11:40 | disposition home or self-care (01) | LOC: HO.HMGCLDS 11:39 | PROVIDERS: PCP Internal Medicine; Visit Provider Internal Medicine | DX: I49.1 Atrial premature depolarization (principal); I25.10 Atherosclerotic heart disease of native coronary artery without angina pectoris; I10 Essential (primary) hypertension; R41.3 Other amnesia; F41.1 Generalized anxiety disorder | CPT/HCPCS: 36415; 80053; 84443; 85025 ==

== ENCOUNTER 2023-01-21 11:00 | Emergency (ER) | payer MEDICARE, SELFPAY ==
--- NOTE | 2023-01-21 | ECG_ITS ---
Test Reason : palpitations Blood Pressure : / mmHG Vent. Rate : 099 BPM Atrial Rate : 099 BPM P-R Int : 142 ms QRS Dur : 074 ms QT Int : 348 ms P-R-T Axes : 073 007 041 degrees QTc Int : 446 ms Sinus rhythm with occasional Premature ventricular complexes Cannot rule out Anterior infarct (cited on or before 12-DEC-2017) Nonspecific ST abnormality Abnormal ECG When compared with ECG of 12-DEC-2017 06:07, Premature ventricular complexes are now Present Referred By: Generic ED Physician Electronically Signed By:KALEB TORREZ MD
[2023-01-21 11:23] VITALS: BP 183/68; PULSE 106; RESP 18; TEMP 36.4; O2SAT 99; BMI 20.2
--- NOTE | 2023-01-21 11:23 | ED_ITS ---
HPI - General Adult General Chief complaint: Arrhythmia/Palpitations Stated complaint: heart palpations Time Seen by Provider: 01/21/23 12:24 Related Data Home Medications Medication Instructions Recorded Confirmed aspirin 81 mg tablet,delayed 81 mg PO DAILY 02/04/20 01/24/23 release (Adult Low Dose Aspirin) coenzyme Q10 [Co Q-10] PO DAILY 12/21/20 01/24/23 omega-3 fatty acids [Fish Oil PO DAILY 12/21/20 01/24/23 Concentrate] Previous Rx's Medication Instructions Recorded nitroglycerin 0.4 mg sublingual 0.4 mg sublingual Q5M PRN chest 04/27/21 tablet pain #25 tabs metoprolol succinate 100 mg 100 mg PO DAILY #90 tabs 11/06/22 tablet,extended release 24 hr amlodipine 2.5 mg tablet 5 mg (2 x 2.5 mg) PO DAILY 90 days 02/01/23 #180 tabs escitalopram oxalate 5 mg tablet 5 mg PO DAILY 90 days #90 tabs 02/06/23 Allergies Allergy/AdvReac Type Severity Reaction Status Date / Time epinephrine [EPINEPHRINE] Allergy Severe CHEST Verified 01/24/23 09:02 POUNDING, palpitations, palpitations Chknlrm-PWE-PcL Reductase Allergy Intermediate MUSCLE Verified 01/24/23 09:02 Inhibitor PAINS [SSMIIVC-DBN-NSN REDUCTASE INHIBITOR] Ezetimbie AdvReac Unknown Muscle pain Uncoded 07/24/22 13:17 [facility] Past Medical History Medical History Difficulty hearing CAD (coronary artery disease) PAC (premature atrial contraction) HTN (hypertension) Surgical History Hx of cardiac cath Family History Family History Father CVD (cardiovascular disease) Mother No problems noted. Social History Social History Housing: House Patient Tobacco Use Status: Never used Tobacco e-Cigarette/Vaping Use: Never Used Second Hand Smoke Exposure: No service: No Current occupational status: retired Cognitive needs: No Hearing needs: No Vision needs: Yes Physical Exam ED Vital Signs: BMI result Body Mass Index 20.2 Course Course Course Narrative: RME- 87-year-old female presents for evaluation of intermittent palpitations that started this morning. Patient has history of similar as well as PACs. EKG shows sinus rhythm with a rate of 99 beats per minute. Plan for cardiac workup Medical Decision Making Lab Data 01/21/23 12:14 01/21/23 12:13 Labs: Lab Results 01/21/23 01/21/23 Range/Units 12:13 12:14 WBC 10.3 (4.8-10.8) X10*3/uL RBC 4.96 (4.20-5.50) X10*6/uL Hgb 14.9 (12.0-16.0) g/dl Hct 43.9 (37.0-47.0) % MCV 88.5 (80.0-98.0) fL MCH 30.0 (27.0-33.0) pg MCHC 33.9 (31.0-35.0) g/dl RDW 12.8 (11.0-16.0) % Plt Count 326 (160-400) X10*3/uL MPV 9.9 (9.4-12.3) fL Immature Gran % (Auto) 0.3 (0.0-0.4) % Neut % (Auto) 61.9 (45-73) % Lymph % (Auto) 27.1 (20-40) % [place] % (Auto) 8.7 (2-11) % Eos % (Auto) 1.6 (0-4) % Baso % (Auto) 0.4 (0-2) % Lymph # (Auto) 2.8 (1.2-4.9) X10*3/uL [place] # (Auto) 0.9 (0.1-1.2) X10*3/uL Eos # (Auto) 0.2 (0.0-0.4) X10*3/uL Baso # (Auto) 0.0 (0.0-0.2) X10*3/uL Abs Immat Gran (auto) 0.03 (0.00-0.03) X10*3/uL Absolute Neuts (auto) 6.4 (2.0-8.3) x10*3/uL Absolute Nucleated RBC 0.000 (0.0-0.012) X10*3/uL Nucleated RBC % (auto) 0.0 (0.0-0.2) /100WBC PT 10.6 L (11.1-13.3) SEC INR 0.9 (0.9-1.1) APTT 27.9 (26.0-36.4) SEC Sodium 140 (135-145) mmol/L Potassium 3.9 (3.3-5.1) mmol/L Chloride 106 (96-108) mmol/L Carbon Dioxide 23 (22-29) mmol/L Anion Gap 15 (12-20) BUN 13 (9-16) mg/dL Creatinine 0.70 (0.5-1.4) mg/dL Estim Creat Clear Calc 37.8 Estimated GFR > 60 Random Glucose 112 (60-115) mg/dL Calcium 9.6 (8.4-10.2) mg/dL Total Bilirubin 0.5 (0.0-1.0) mg/dL AST 26 (5-31) U/L ALT 18 (0-31) U/L Alkaline Phosphatase 65 (39-117) U/L Troponin I High Sens < 2.7 (<3.5-17.0) ng/L B-Natriuretic Peptide 130 H (<100) pg/mL Total Protein 7.7 (6.5-8.0) g/dL Albumin 4.4 (3.5-5.0) g/dL Lipase 36 (8-78) U/L TSH 0.63 (0.32-4.0) uIU/mL Urine Color Yellow Urine Appearance Clear Urine pH 6.5 (5.0-9.0) Ur Specific [place] 1.015 (1.005-1.025) Urine Protein Trace (Neg-Trace) mg/dL Urine Glucose (UA) Negative (Negative) mg/dL Urine Ketones Negative (Negative) mg/dL Urine Blood Negative (Negative) Urine Nitrite Negative (Negative) Ur Leukocyte Esterase Small (1+) H (Negative) Urine RBC 3-5 H (0-2) /HPF Urine WBC 0-5 (0-5) /HPF Ur Squamous Epith Cells 0-2 (0-2) /HPF Urine Bacteria None Seen (None Seen) Hyaline Casts 0-2 (0-2) /LPF Discharge Plan Discharge Clinical Impression: Heart palpitations Patient Disposition: Home, Self-Care Instructions: Heart Palpitations (DC) Additional Instructions: Follow-up with your primary care physician return to the emergency room if you are worse we sent a prescription for you for escitalopram Prescriptions: No Action nitroglycerin 0.4 mg tablet, sublingual 0.4 mg sublingual Q5M PRN (Reason: chest pain) Qty: 25 2RF Rx Instructions: do not exceed 3 doses per episode metoprolol succinate 100 mg tablet extended release 24 hr 100 mg PO DAILY Qty: 90 3RF amlodipine 2.5 mg tablet 5 mg PO DAILY 90 Days Qty: 180 0RF escitalopram oxalate 5 mg tablet 5 mg PO DAILY 90 Days Qty: 90 0RF coenzyme Q10 [Co Q-10] PO DAILY omega-3 fatty acids [Fish Oil Concentrate] PO DAILY aspirin [Adult Low Dose Aspirin] 81 mg tablet,delayed release (DR/EC) 81 mg PO DAILY Referrals: Riaz Da Silva MD [Primary Care Provider] - 2 days Interventions: ED Discharge Assessment Last Done: 01/21/23 15:26 Discharge Date/Time: 01/21/23 15:27
[2023-01-21 12:00] VITALS: PULSE 92; RESP 18
[2023-01-21 12:19] LABS: MANUAL DIFF FLAG NO
[2023-01-21 12:22] LABS: Appearance Urine Clear; Color Urine Yellow; Glucose Urine UA Negative (Negative); Leukocyte Esterase Urine Small (1+) (Negative); Nitrite Urine Negative (Negative); PH 6.5 (5.0-9.0); Specific Gravity - Urine 1.015 (1.005-1.025); UMIC TRIGGER UACC YES; Urine Blood Negative (Negative); Urine Ketones Negative (Negative); Urine Protein Trace mg/dL (Neg-Trace)
[2023-01-21 12:22] LABS: Basophils Percent Auto 0.4 % (0-2); Eosinophils Absolute Auto 0.2 X10*3/uL (0.0-0.4); Eosinophils Percent Auto 1.6 % (0-4); Hematocrit 43.9 % (37.0-47.0); Hemoglobin 14.9 g/dl (12.0-16.0); Imm Gran Abs Auto 0.03 X10*3/uL (0.00-0.03); Imm Gran Pct Auto 0.3 % (0.0-0.4); Lymphocytes Absolute Auto 2.8 X10*3/uL (1.2-4.9); Lymphocytes Percent Auto 27.1 % (20-40); Mean Corpuscular HGB Conc 33.9 g/dl (31.0-35.0); Mean Corpuscular Volume 88.5 fL (80.0-98.0); Mean Platelet Volume 9.9 fL (9.4-12.3); Monocytes Absolute Auto 0.9 X10*3/uL (0.1-1.2); Monocytes Percent Auto 8.7 % (2-11); Neutrophils Absolute Auto 6.4 x10*3/uL (2.0-8.3); Neutrophils Percent Auto 61.9 % (45-73); Platelet Count 326 X10*3/uL (160-400); Red Blood Count 4.96 X10*6/uL (4.20-5.50); Red Cell Distribution Width 12.8 % (11.0-16.0); White Blood Count 10.3 X10*3/uL (4.8-10.8)
[2023-01-21 12:27] LABS: INTERNATIONAL NORM RATIO 0.9 (0.9-1.1); Prothrombin Time 10.6 SEC (11.1-13.3)
[2023-01-21 12:29] LABS: Partial Thromboplastin Time 27.9 SEC (26.0-36.4)
--- NOTE | 2023-01-21 12:37 | ED.ARRPALP ---
HPI - Arrhythmia/Palpitations General Chief Complaint: Arrhythmia/Palpitations Stated Complaint: heart palpations Time Seen by Provider: 01/21/23 12:24 Source: patient Mode of arrival: ambulatory Limitations: no limitations History of Present Illness HPI narrative: This is an 87 years old female presented to the emergency department with a chief complaint of palpitations. She is on metoprolol and mg daily. She denies any chest pain shortness of breath. She is here with the 2 daughters. She has also history of anxiety disorder MD complaint: heart racing Onset (ago): day(s) Time: 01:00 Severity: mild Associated symptoms: denies other symptoms Related Data Home Medications Medication Instructions Recorded Confirmed aspirin 81 mg tablet,delayed 81 mg PO DAILY 02/04/20 12/25/22 release (Adult Low Dose Aspirin) coenzyme Q10 [Co Q-10] PO DAILY 12/21/20 12/25/22 omega-3 fatty acids [Fish Oil PO DAILY 12/21/20 12/25/22 Concentrate] Previous Rx's Medication Instructions Recorded nitroglycerin 0.4 mg sublingual 0.4 mg sublingual Q5M PRN chest 04/27/21 tablet pain #25 tabs metoprolol succinate 100 mg 100 mg PO DAILY #90 tabs 11/06/22 tablet,extended release 24 hr amlodipine 2.5 mg tablet 5 mg (2 x 2.5 mg) PO DAILY 90 days 12/18/22 #180 tabs escitalopram oxalate 5 mg tablet 5 mg PO DAILY 30 days #30 tabs 12/25/22 escitalopram oxalate 5 mg tablet 5 mg PO DAILY #30 tabs 01/21/23 Allergies Allergy/AdvReac Type Severity Reaction Status Date / Time epinephrine [EPINEPHRINE] Allergy Severe CHEST Verified 01/17/23 08:41 POUNDING, palpitations, palpitations Anyifxt-UYU-MqL Reductase Allergy Intermediate MUSCLE Verified 01/17/23 08:41 Inhibitor PAINS [[id number] REDUCTASE INHIBITOR] Ezetimbie AdvReac Unknown Muscle pain Uncoded 07/24/22 13:17 Review of Systems Constitutional: Constitutional: Reports no additional constitutional complaints Cardiovascular: Cardiovascular: Reports as per HPI Respiratory: Respiratory: Reports no additional respiratory complaints [facility] Past Medical History Medical History Difficulty hearing CAD (coronary artery disease) PAC (premature atrial contraction) HTN (hypertension) Surgical History Hx of cardiac cath Family History Family History Father CVD (cardiovascular disease) Mother No problems noted. Social History Social History Housing: House Patient Tobacco Use Status: Never used Tobacco e-Cigarette/Vaping Use: Never Used Second Hand Smoke Exposure: No Use of substances other than those prescribed or required for medical reasons: No Advance Directives: Yes Advance Directives Information Provided: No Advance Directives on File: No service: No Current occupational status: retired Cognitive needs: No Hearing needs: No Vision needs: Yes Physical Exam Vital Signs: Vital Signs: Last Vital Signs Temp 97.6 F 01/21/23 11:23 Pulse 92 01/21/23 12:00 Resp 18 01/21/23 12:00 BP 183/68 H 01/21/23 11:23 Pulse Ox 99 01/21/23 11:23 O2 Del Method Room Air 01/21/23 11:23 BMI result Body Mass Index 20.2 Const: General: cooperative Nutritional Appearance: well nourished Orientation/consciousness: patient oriented x3 HEENT: Head: Yes normal to inspection General nose exam: Normal external nose present Face and sinus: Yes normal facial exam Mouth: Normal oral and palatal mucosa present Throat: Yes posterior oropharynx normal Neck: Neck: Yes normal visual inspection Chest: Chest palpation & inspection: normal inspection of the chest Resp: Effort & Inspection: normal respiratory effort Auscultation: clear to auscultation bilaterally Cardio: Jugular venous distension: no JVD Rate: regular rate GI: Inspection: Yes normal to inspection Percussion: Yes normal to percussion Skin: General skin exam: no rashes or lesions noted Lesions: no lesions Rashes: no rashes Neuro: General: patient oriented x3 Extrem: General: Yes normal to inspection Course Reevaluation(s) Reevaluation #1: She is completely asymptomatic high sensitive troponin negative she was monitored for about 2 hours he remained in sinus rhythm discussed at length with patient and family okay to discharge they are comfortable with the plan, the request me to refill the medication for the antidepressive Time: 15:12 Medical Decision Making Medical Decision Making [facility] Narrative: Patient presented with palpitation with obtain electrocardiogram labs and reassess Differential Diagnosis Differential Diagnoses: The differential diagnosis associated with the presentation includes Atrial fibrillation/SVT/acute coronary syndrome Lab Data [facility] Lab Attestation statement: I reviewed the patient's lab results. 01/21/23 12:14 01/21/23 12:13 Labs: Lab Results 01/21/23 01/21/23 Range/Units 12:13 12:14 WBC 10.3 (4.8-10.8) X10*3/uL RBC 4.96 (4.20-5.50) X10*6/uL Hgb 14.9 (12.0-16.0) g/dl Hct 43.9 (37.0-47.0) % MCV 88.5 (80.0-98.0) fL MCH 30.0 (27.0-33.0) pg MCHC 33.9 (31.0-35.0) g/dl RDW 12.8 (11.0-16.0) % Plt Count 326 (160-400) X10*3/uL MPV 9.9 (9.4-12.3) fL Immature Gran % (Auto) 0.3 (0.0-0.4) % Neut % (Auto) 61.9 (45-73) % Lymph % (Auto) 27.1 (20-40) % [place] % (Auto) 8.7 (2-11) % Eos % (Auto) 1.6 (0-4) % Baso % (Auto) 0.4 (0-2) % Lymph # (Auto) 2.8 (1.2-4.9) X10*3/uL [place] # (Auto) 0.9 (0.1-1.2) X10*3/uL Eos # (Auto) 0.2 (0.0-0.4) X10*3/uL Baso # (Auto) 0.0 (0.0-0.2) X10*3/uL Abs Immat Gran (auto) 0.03 (0.00-0.03) X10*3/uL Absolute Neuts (auto) 6.4 (2.0-8.3) x10*3/uL Absolute Nucleated RBC 0.000 (0.0-0.012) X10*3/uL Nucleated RBC % (auto) 0.0 (0.0-0.2) /100WBC PT 10.6 L (11.1-13.3) SEC INR 0.9 (0.9-1.1) APTT 27.9 (26.0-36.4) SEC Sodium 140 (135-145) mmol/L Potassium 3.9 (3.3-5.1) mmol/L Chloride 106 (96-108) mmol/L Carbon Dioxide 23 (22-29) mmol/L Anion Gap 15 (12-20) BUN 13 (9-16) mg/dL Creatinine 0.70 (0.5-1.4) mg/dL Estim Creat Clear Calc 37.8 Estimated GFR > 60 Random Glucose 112 (60-115) mg/dL Calcium 9.6 (8.4-10.2) mg/dL Total Bilirubin 0.5 (0.0-1.0) mg/dL AST 26 (5-31) U/L ALT 18 (0-31) U/L Alkaline Phosphatase 65 (39-117) U/L Troponin I High Sens < 2.7 (<3.5-17.0) ng/L B-Natriuretic Peptide 130 H (<100) pg/mL Total Protein 7.7 (6.5-8.0) g/dL Albumin 4.4 (3.5-5.0) g/dL Lipase 36 (8-78) U/L TSH 0.63 (0.32-4.0) uIU/mL Urine Color Yellow Urine Appearance Clear Urine pH 6.5 (5.0-9.0) Ur Specific [place] 1.015 (1.005-1.025) Urine Protein Trace (Neg-Trace) mg/dL Urine Glucose (UA) Negative (Negative) mg/dL Urine Ketones Negative (Negative) mg/dL Urine Blood Negative (Negative) Urine Nitrite Negative (Negative) Ur Leukocyte Esterase Small (1+) H (Negative) Urine RBC 3-5 H (0-2) /HPF Urine WBC 0-5 (0-5) /HPF Ur Squamous Epith Cells 0-2 (0-2) /HPF Urine Bacteria None Seen (None Seen) Hyaline Casts 0-2 (0-2) /LPF Independent Interpretation I performed an independent interpretation of an: EKG Interpretation: EKG NSR 99 no ischemia Independent Historian Clinical information obtained from an independent historian. History obtained from or confirmed by: Other (daughters) Discharge Plan Discharge Clinical Impression: Heart palpitations Patient Disposition: Home, Self-Care Instructions: Heart Palpitations (DC) Additional Instructions: Follow-up with your primary care physician return to the emergency room if you are worse we sent a prescription for you for escitalopram Prescriptions: New escitalopram oxalate 5 mg tablet 5 mg PO DAILY Qty: 30 0RF No Action nitroglycerin 0.4 mg tablet, sublingual 0.4 mg sublingual Q5M PRN (Reason: chest pain) Qty: 25 2RF Rx Instructions: do not exceed 3 doses per episode metoprolol succinate 100 mg tablet extended release 24 hr 100 mg PO DAILY Qty: 90 3RF amlodipine 2.5 mg tablet 5 mg PO DAILY 90 Days Qty: 180 0RF escitalopram oxalate 5 mg tablet 5 mg PO DAILY 30 Days Qty: 30 0RF coenzyme Q10 [Co Q-10] PO DAILY omega-3 fatty acids [Fish Oil Concentrate] PO DAILY aspirin [Adult Low Dose Aspirin] 81 mg tablet,delayed release (DR/EC) 81 mg PO DAILY Referrals: Riaz Da Silva MD [Primary Care Provider] - 2 days
[2023-01-21 12:41] LABS: Bacteria Urine None Seen (None Seen); Hyaline Casts Urine 0-2 /LPF (0-2); Squamous Epithelial Cell Urine 0-2 /HPF (0-2); UACC Culture Trigger YES; WBC Urine 0-5 /HPF (0-5)
[2023-01-21 12:45] LABS: Alanine Aminotransferase 18 U/L (0-31); Albumin Level 4.4 g/dL (3.5-5.0); Alkaline Phosphatase 65 U/L (39-117); Anion Gap 15 (12-20); Aspartate Amino Transferase 26 U/L (5-31); Bilirubin Total 0.5 mg/dL (0.0-1.0); Blood Urea Nitrogen 13 mg/dL (9-16); Calcium 9.6 mg/dL (8.4-10.2); Carbon Dioxide 23 mmol/L (22-29); Chloride 106 mmol/L (96-108); Creatinine Clr Calc Pharmacy 37.8; Estimated Glomerular Filt Rate > 60; Glucose Random 112 mg/dL (60-115); Lipase 36 U/L (8-78); Potassium 3.9 mmol/L (3.3-5.1); Sodium 140 mmol/L (135-145); Total Protein 7.7 g/dL (6.5-8.0); Troponin-I High Sensitivity < 2.7 ng/L (<3.5-17.0)
[2023-01-21 12:58] LABS: B Type Natriuretic Peptide 130 pg/mL (<100); TSH reflex Free T4 0.63 uIU/mL (0.32-4.0)
== END 2023-01-21 15:27 | disposition home or self-care (01) ==
PROVIDERS: Physician Assistant; Emergency Provider Emergency Medicine; PCP Internal Medicine
DX: I49.9 Cardiac arrhythmia, unspecified (principal); R00.2 Palpitations; R06.02 Shortness of breath; Z79.899 Other long term (current) drug therapy
CPT/HCPCS: 36415; 80053; 81001; 83690; 83880; 84443; 84484; 85025; 85610; 85730; 87086; 93005; 99283; 99285

== ENCOUNTER 2023-01-24 08:43 | Outpatient (AMB) | payer MEDICARE, SELFPAY ==
--- NOTE | 2023-01-24 09:02 | MHC.PC.OV ---
Intake Visit Reasons: Follow Up~ [phone] Allergies epinephrine [EPINEPHRINE] Allergy (Severe, Verified 01/24/23 09:02) CHEST POUNDING, palpitations, palpitations Jklpekv-MBG-CeL Reductase Inhibitor [BNPQTYE-NNV-PFL REDUCTASE INHIBITOR] Allergy (Intermediate, Verified 01/24/23 09:02) MUSCLE PAINS Ezetimbie Adverse Reaction (Unknown, Uncoded 07/24/22 13:17) Muscle pain Medication List - Last Reconciled 01/24/23 by Riaz Da Silva MD amlodipine 5 mg (2 x 2.5 mg) PO DAILY 90 days aspirin (Adult Low Dose Aspirin) 81 mg PO DAILY coenzyme Q10 (Co Q-10) PO DAILY escitalopram oxalate 5 mg PO DAILY escitalopram oxalate 5 mg PO DAILY 30 days metoprolol succinate ER 100 mg PO DAILY nitroglycerin 0.4 mg sublingual Q5M PRN omega-3 fatty acids (Fish Oil Concentrate) PO DAILY Tobacco use date assessed: 01/24/23 Fall risk assessment: No Falls in past year Last assessed Fall Risk: 01/24/23 Dental Screening Dental Screen Date: 01/24/23 Did you have a dental visit in the last 12 months?: Yes Did you have a dental problem in the last 6 months where you did not have access to dental care?: No Was dental information given to patient?: Patient has dentist HPI Follow Up~ [phone] HPI Details Patient is 87-year-old female this is a telemedicine conference Patient's daughter Gabbi is also present during this conversation Patient is suffering from anxiety disorder leading to panic attacks and palpitations I started her on Lexapro 5 mg last visit, patient felt better taking the medication and then she ran out and had a panic attack She ended up in a emergency room where she was evaluated and discharged with a script of Lexapro. I have sent medication for 90 days patient is to continue 5 mg for a month and then double the dose to 10 mg. Her daughter Gabbi will keep an eye on her. They will also pursue spiritual therapy through their [facility] Medical History Difficulty hearing CAD (coronary artery disease) PAC (premature atrial contraction) HTN (hypertension) Surgical History Hx of cardiac cath Family History Father CVD (cardiovascular disease) Mother No problems noted. Social History Housing: House Patient Tobacco Use Status: Never used Tobacco e-Cigarette/Vaping Use: Never Used Second Hand Smoke Exposure: No service: No Current occupational status: retired Cognitive needs: No Hearing needs: No Vision needs: Yes Questionnaire Thrive Questionnaire Date Thrive assessed: 07/24/22 RC-7 AMB Questionnaire RC-7 Date RC - 7 assessed: 07/24/22 Source: Developed by Drs. Gutierrez Mays, Sarita Phipps, Omar Renteria and colleagues, with an educational belkis from [employer]. Review of Systems Const Denies chills and Denies fever(s) ENT Denies epistaxis and Denies nasal discharge Card Denies chest pain Resp Denies chest congestion, Denies cough and Denies hemoptysis GI Denies diarrhea and Denies nausea Skin/Breast Denies rash Neuro Reports no additional complaints Psych Reports no additional complaints Endo Reports no additional complaints Physical exam (Primary Care) Tobacco/Smoking Status: Tobacco use Status Tobacco use date assessed 01/24/23 01/24/23 09:03 Patient Tobacco Use Status Never used Tobacco 01/24/23 09:03 e-Cigarette/Vaping Use Never Used 01/24/23 09:03 Thrive Assessment: Date of Thrive Assessment Date Thrive assessed 07/24/22 01/24/23 09:03 Telehealth Telehealth Location of provider rendering services: practice address Location of patient: address on file Patient Identification confirmed using: Name, : Yes Telehealth method: voice only Patient verbally consented to treatment: Yes Patient verbally consented to billing insurance company: Yes Patient informed of any privacy concerns related to visit: Yes Minutes spent on Phone/Video with Pt.: 13 Assessment and Plan Assessment & Plan (1) Anxiety, generalized: Code(s): F41.1 - Generalized anxiety disorder (2) Palpitations: Code(s): R00.2 - Palpitations Plan Patient is 87-year-old female this is a telemedicine conference Patient's daughter Gabbi is also present during this conversation Patient is suffering from anxiety disorder leading to panic attacks and palpitations I started her on Lexapro 5 mg last visit, patient felt better taking the medication and then she ran out and had a panic attack She ended up in a emergency room where she was evaluated and discharged with a script of Lexapro. I have sent medication for 90 days patient is to continue 5 mg for a month and then double the dose to 10 mg. Her daughter Gabbi will keep an eye on her. 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
== END 2023-01-24 09:51 | disposition home or self-care (01) ==
LOC: HO.HMGC 08:43
PROVIDERS: PCP Internal Medicine; Visit Provider Internal Medicine
DX: F41.1 Generalized anxiety disorder (principal); R00.2 Palpitations
CPT/HCPCS: 99442

== ENCOUNTER 2023-04-30 09:48 | Outpatient (AMB) | payer MEDICARE, SELFPAY ==
--- NOTE | 2023-04-30 09:57 | MHC.PC.OV ---
Vital Signs 04/30/23 09:58 Height 4 ft 11 in Weight 101 lb 2 oz BMI 20.4 BP 124/62 Blood Pressure Location Lt brachial Position Sitting Pulse 78 Pulse Source Pulse Oximeter Pulse Oximetry (%) 98 Oxygen Delivery Method Room Air Intake Visit Reasons: Follow up Palpitations Allergies epinephrine [EPINEPHRINE] Allergy (Severe, Verified 04/30/23 09:57) CHEST POUNDING, palpitations, palpitations Oimfxim-CFJ-TvQ Reductase Inhibitor [EULGHXA-OXN-RBX REDUCTASE INHIBITOR] Allergy (Intermediate, Verified 04/30/23 09:57) MUSCLE PAINS Ezetimbie Adverse Reaction (Unknown, Uncoded 07/24/22 13:17) Muscle pain Medication List - Last Reconciled 04/30/23 by Riaz Da Silva MD amlodipine 5 mg (2 x 2.5 mg) PO DAILY 90 days aspirin (Adult Low Dose Aspirin) 81 mg PO DAILY coenzyme Q10 (Co Q-10) PO DAILY escitalopram oxalate 5 mg PO DAILY 90 days metoprolol succinate ER 100 mg PO DAILY nitroglycerin 0.4 mg sublingual Q5M PRN omega-3 fatty acids (Fish Oil Concentrate) PO DAILY Tobacco use date assessed: 04/30/23 Fall risk assessment: No Falls in past year Last assessed Fall Risk: 04/30/23 Dental Screening Dental Screen Date: 04/30/23 Did you have a dental visit in the last 12 months?: Yes Did you have a dental problem in the last 6 months where you did not have access to dental care?: No Was dental information given to patient?: Patient has dentist HPI Follow up Palpitations HPI Details Patient is 87-year-old female came in today for her follow-up appointment Patient's daughter Gabbi is also present during this visit Patient is suffering from anxiety disorder leading to panic attacks and palpitations I started her on Lexapro 5 mg last visit, patient is doing well with this medication We did the EKG today which shows supraventricular arrhythmia Last time patient seen supervisor shipping room Dr. Rogers was in 2021, I think it will be reasonable to have a follow-up appointment Patient also have a neurology appointment coming up for memory change Patient does note feel the need this appointment however her daughter feels strongly that she do need to have a visit They will have this conversation at home. Follow-up August for anxiety [facility] Medical History Difficulty hearing CAD (coronary artery disease) PAC (premature atrial contraction) HTN (hypertension) Surgical History Hx of cardiac cath Family History Father CVD (cardiovascular disease) Mother No problems noted. Social History Housing: House Patient Tobacco Use Status: Never used Tobacco e-Cigarette/Vaping Use: Never Used Second Hand Smoke Exposure: No service: No Current occupational status: retired Cognitive needs: No Hearing needs: No Vision needs: Yes Questionnaire Thrive Questionnaire Date Thrive assessed: 07/24/22 AUDIT C Alcohol Use Questionnaire (AUDIT-C) 1. How often do you have a drink containing alcohol?: Never 3. How often do you have six or more drinks on one occasion?: Never Total Score: 0 Score Reviewed/Action Taken: Yes RC-7 AMB Questionnaire RC-7 Date RC - 7 assessed: 07/24/22 Source: Developed by Drs. Gutierrez Mays, Sarita Phipps, Omar Renteria and colleagues, with an educational belkis from [employer]. Review of Systems Const Denies chills and Denies fever(s) ENT Denies epistaxis and Denies nasal discharge Card Denies chest pain Resp Denies chest congestion, Denies cough and Denies hemoptysis GI Denies diarrhea and Denies nausea Skin/Breast Denies rash Neuro Reports no additional complaints Psych Reports no additional complaints Endo Reports no additional complaints Physical exam (Primary Care) Vital Signs: Last Vital Signs Pulse 78 04/30/23 09:58 BP 124/62 04/30/23 09:58 Pulse Ox 98 04/30/23 09:58 Oxygen Delivery Method Room Air 04/30/23 09:58 BMI result Body Mass Index 20.4 Tobacco/Smoking Status: Tobacco use Status Tobacco use date assessed 04/30/23 04/30/23 09:59 Patient Tobacco Use Status Never used Tobacco 04/30/23 09:59 e-Cigarette/Vaping Use Never Used 04/30/23 09:59 Thrive Assessment: Date of Thrive Assessment Date Thrive assessed 07/24/22 04/30/23 09:59 Const General: cooperative, comfortable and no acute distress Orientation/consciousness: patient oriented x3 HENMT Head: Yes normocephalic Eyes General: appearance normal, both eyes and all related structures Neck Neck: Yes supple Resp Effort & Inspection: normal respiratory effort, no cough and no stridor Cardio Rhythm: regular rhythm Heart sounds: S1 normal heart sound present and S2 normal heart sound present Skin General skin exam: turgor normal Neuro General: patient oriented x3, tone normal and moves all extremities Extrem Right lower extremity: no edema Left lower extremity: no edema Office Procedures EKG [id number], Complete Assessment and Plan Assessment & Plan (1) Anxiety, generalized: Code(s): F41.1 - Generalized anxiety disorder (2) Palpitations: Code(s): R00.2 - Palpitations (3) Memory change: Code(s): R41.3 - Other amnesia (4) CAD (coronary artery disease): Comment: Nonobstructive by cardiac catheterization Code(s): I25.10 - Atherosclerotic heart disease of [place] coronary artery without angina pectoris Qualifiers: Coronary Disease-Associated Artery/Lesion type: [place] artery [place] vs. transplanted heart: [place] heart Associated angina: without angina Qualified Code(s): I25.10 - Atherosclerotic heart disease of [place] coronary artery without angina pectoris (5) PAC (premature atrial contraction): Code(s): I49.1 - Atrial premature depolarization Plan Patient is 87-year-old female came in today for her follow-up appointment Patient's daughter Gabbi is also present during this visit Patient is suffering from anxiety disorder leading to panic attacks and palpitations I started her on Lexapro 5 mg last visit, patient is doing well with this medication We did the EKG today which shows supraventricular arrhythmia Last time patient seen supervisor shipping room Dr. Rogers was in 2021, I think it will be reasonable to have a follow-up appointment Patient also have a neurology appointment coming up for memory change Patient does note feel the need this appointment however her daughter feels strongly that she do need to have a visit They will have this conversation at home. Blood pressure is well controlled, patient is taking all her medications tolerating. Follow-up August for anxiety Orders: Orders Complete Blood Count Auto Diff Today F41.1 - Generalized anxiety disorder, I25.10 - Atherosclerotic heart disease of [place] coronary artery without angina pectoris, I49.1 - Atrial premature depolarization, R00.2 - Palpitations, R41.3 - Other amnesia Comprehensive Met. Panel Today F41.1 - Generalized anxiety disorder, I25.10 - Atherosclerotic heart disease of [place] coronary artery without angina pectoris, I49.1 - Atrial premature depolarization, R00.2 - Palpitations, R41.3 - Other amnesia Vitamin B12 Today F41.1 - Generalized anxiety disorder, I25.10 - Atherosclerotic heart disease of [place] coronary artery without angina pectoris, I49.1 - Atrial premature depolarization, R00.2 - Palpitations, R41.3 - Other amnesia AMB EKG-In Office Today Z13.6 - Encounter for screening for cardiovascular disorders Coding Level of Care Code Est Pt Level 4 (32113) Diagnoses Anxiety, generalized F41.1 Palpitations R00.2 Memory change R41.3 Coronary artery disease involving [place] coronary artery of [place] heart without angina pectoris I25.10 Coronary Disease-Associated Artery/Lesion type: [place] artery [place] vs. transplanted heart: [place] heart Associated angina: without angina PAC (premature atrial contraction) I49.1 CPT Codes EKG - CPT: 98553-[id number], Complete ([id number])
[2023-04-30 09:58] VITALS: BP 124/62; PULSE 78; O2SAT 98; BMI 20.4
== END 2023-04-30 10:24 | disposition home or self-care (01) ==
PROVIDERS: PCP Internal Medicine; Visit Provider Internal Medicine
DX: F41.1 Generalized anxiety disorder (principal); R00.2 Palpitations; R41.3 Other amnesia; I25.10 Atherosclerotic heart disease of native coronary artery without angina pectoris; I49.1 Atrial premature depolarization
CPT/HCPCS: 93000; 99214

== ENCOUNTER 2023-06-05 09:31 | Outpatient (AMB) | payer MEDICARE, SELFPAY ==
--- NOTE | 2023-06-05 09:34 | MHC.OFFVIS ---
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 Hat Lacer Required: No Allergies epinephrine [EPINEPHRINE] Allergy (Severe, Verified 06/05/23 09:36) CHEST POUNDING, palpitations, palpitations Csbngys-RYB-DvU Reductase Inhibitor [GVPZFOX-MXR-OXW REDUCTASE INHIBITOR] Allergy (Intermediate, Verified 06/05/23 09:36) MUSCLE PAINS Ezetimbie Adverse Reaction (Unknown, Uncoded 06/05/23 09:36) Muscle pain Medication List - Last Reconciled 06/05/23 by Steffany Maldonado MD amlodipine 5 mg (2 x 2.5 mg) PO DAILY 90 days aspirin (Adult Low Dose Aspirin) 81 mg PO DAILY coenzyme Q10 (Co Q-10) PO DAILY escitalopram oxalate 5 mg PO DAILY 90 days metoprolol succinate ER 100 mg PO DAILY nitroglycerin 0.4 mg sublingual Q5M PRN omega-3 fatty acids (Fish Oil Concentrate) PO DAILY HPI HPI Comments History of Present Illness Details 88y/o right handed female comes for evaluation of memory issues. she is accompanied by her 2 daughters who help with history.Her daughters noticed that she was having some forgetfulness about 4 years ago . Since her of Alzheimers 2 years ago the cognition worsened. she frequently repeats questions, has trouble remembering conversations, she forgot that her grand daughter was ,she lives alone but has someone managing her medications, loses her keys check book etc. she still remembers her phone numbers but frequently mixes her childrens names. Since her passed she has been very anxious. she was started on lexapro and that has helped significantly.she still manages to prepare her meals- simple, can dress and shower.No sleep issues. when she came for appointment she id not want to come into the office for fear of being diagnosed with dementia. [facility] Medical History Difficulty hearing CAD (coronary artery disease) PAC (premature atrial contraction) HTN (hypertension) Surgical History H/O thyroidectomy Hx of cardiac cath Family History Father CVD (cardiovascular disease) Mother No problems noted. Social History Housing: House Patient Tobacco Use Status: Never used Tobacco e-Cigarette/Vaping Use: Never Used Second Hand Smoke Exposure: No service: No Current occupational status: retired Cognitive needs: No Hearing needs: No Vision needs: Yes Physical Exam Vital Signs: Last Vital Signs Pulse 99 06/05/23 09:37 Resp 16 06/05/23 09:37 BP 148/88 H 06/05/23 09:37 Pulse Ox 99 06/05/23 09:37 Oxygen Delivery Method Room Air 06/05/23 09:37 BMI result Body Mass Index 20.4 Const General: cooperative, healthy appearing, comfortable, no acute distress and anxious Nutritional Appearance: average body habitus Orientation/consciousness: patient oriented x3 Limitations: no limitations Eyes Pupils: Equal, round and reactive pupils present Neuro General: patient oriented x3, tone normal, moves all extremities and no focal motor deficits Cranial nerves: Yes Equal, round and reactive pupils present, Yes Bilaterally intact EOM present, Yes Nystagmus not present, Yes Normal facial strength present, Yes Midline tongue present and Yes Symmetric palate elevation present Cognition (Neuro): normal cognition Gait exam (Neuro): Other gait observations present (mild slow gait) Motor exam (neuro): 5/5 motor strength present throughout and Normal motor muscle tone present throughout Deep tendon reflexes (DTR's): Right triceps reflex intensity grade: 2+, Left triceps reflex intensity grade: 2+, Rt Biceps (C5, C6): 2+, Left biceps reflex intensity grade: 2+, Right brachioradialis reflex intensity grade: 2+, Left brachioradialis reflex intensity grade: 2+, Right patellar reflex intensity grade: 2+ and Left patellar reflex intensity grade: 2+ Coordination: cnyhvy-jt-nyif test normal Psych Affect: Anxious affect present Orientation What is the (year) (season) (date) (day) (month)?: year, season, day and month Where are we (state) (county) (town or city) (hospital) (floor)?: state, county, town or city, hospital/clinic and floor Registration Name of 3 unrelated objects clearly and slowly, then ask patient to repeat all 3 of them. (1st repeat determines score. Make sure they can repeat all three): object 1, object 2 and object 3 Attention & Calculation (CHOOSE ONE) Spell WORLD backwards (DLROW): 5 letters Recall Ask patient to repeat the 3 items from question #3.: object 1, object 2 and object 3 Language Show patient a wristwatch & ask what it is. Repeat for pencil.: watch and pencil Ask the patient to repeat the phrase 'No ifs, ands, or buts' after you.: correct Ask the patient to 'take a piece of paper with their right hand' 'fold paper in half' 'place paper on floor': take paper in right hand, fold paper in half and place paper on floor Print the sentence 'CLOSE YOUR EYES' on a piece. If patient actually closes eyes then score.: followed written direction Give patient a blank piece of paper & ask to write a sentence. Score if it contains a noun & verb.: sentence contains subject and verb Ask patient to copy figure of intersecting pentagons exactly. Score if all 10 angles & 2 intersects are included.: all 10 angles present & 2 are intersected Score Score: 29 Assessment & Plan Assessment & Plan (1) Memory change: Comment: age related, anxiety Code(s): R41.3 - Other amnesia Plan I will evaluate her with MRI brain Check her Vit B 12 levels Reviewed her labs from PCP Suggested to increase escitalopram to 10mg if her anxiety worsens Suggested cognitive exercises. Orders: Orders Vitamin D 25-OH (D2 and D3) Today R41.3 - Other amnesia MR brain wo con w neuroquant Today R41.3 - Other amnesia Coding Level of Care Code New Pt Level 4 (24155) Diagnoses Memory change R41.3
[2023-06-05 09:37] VITALS: BP 148/88; PULSE 99; RESP 16; O2SAT 99; BMI 20.4
== END 2023-06-05 11:57 | disposition home or self-care (01) ==
PROVIDERS: PCP Internal Medicine; Visit Provider Psychiatry & Neurology Neurology
DX: R41.3 Other amnesia (principal)
CPT/HCPCS: 99204

== ENCOUNTER 2023-06-05 10:26 | Outpatient (REF) | payer MEDICARE, SELFPAY ==
[2023-06-05 19:25] LABS: MANUAL DIFF FLAG NO
[2023-06-05 19:27] LABS: Basophils Percent Auto 0.4 % (0-2); Eosinophils Absolute Auto 0.3 X10*3/uL (0.0-0.4); Eosinophils Percent Auto 2.8 % (0-4); Hematocrit 43.4 % (37.0-47.0); Hemoglobin 14.7 g/dl (12.0-16.0); Imm Gran Abs Auto 0.03 X10*3/uL (0.00-0.03); Imm Gran Pct Auto 0.3 % (0.0-0.4); Lymphocytes Absolute Auto 2.9 X10*3/uL (1.2-4.9); Lymphocytes Percent Auto 31.2 % (20-40); Mean Corpuscular HGB Conc 33.9 g/dl (31.0-35.0); Mean Corpuscular Hemoglobin 29.9 pg (27.0-33.0); Mean Corpuscular Volume 88.2 fL (80.0-98.0); Mean Platelet Volume 9.9 fL (9.4-12.3); Monocytes Absolute Auto 0.7 X10*3/uL (0.1-1.2); Monocytes Percent Auto 7.2 % (2-11); Neutrophils Absolute Auto 5.5 x10*3/uL (2.0-8.3); Neutrophils Percent Auto 58.1 % (45-73); Platelet Count 299 X10*3/uL (160-400); Red Blood Count 4.92 X10*6/uL (4.20-5.50); Red Cell Distribution Width 12.2 % (11.0-16.0); White Blood Count 9.4 X10*3/uL (4.8-10.8)
[2023-06-05 19:38] LABS: Alanine Aminotransferase 14 U/L (0-31); Albumin Level 4.1 g/dL (3.5-5.0); Alkaline Phosphatase 70 U/L (39-117); Anion Gap 11 (12-20); Aspartate Amino Transferase 19 U/L (5-31); Bilirubin Total 0.5 mg/dL (0.0-1.0); Blood Urea Nitrogen 19 mg/dL (9-16); Carbon Dioxide 28 mmol/L (22-29); Chloride 106 mmol/L (96-108); Estimated Glomerular Filt Rate > 60; Glucose Random 108 mg/dL (60-115); Potassium 3.7 mmol/L (3.3-5.1); Sodium 141 mmol/L (135-145); Total Protein 6.8 g/dL (6.5-8.0)
[2023-06-05 20:05] LABS: Vitamin B12 378 pg/mL (200-900)
[2023-06-11 13:34] LABS: Vitamin D 25-OH, D2 <4 ng/mL; Vitamin D 25-OH, D3 33 ng/mL; Vitamin D 25-OH, Total 33 ng/mL (30-100)
== END 2023-06-05 10:27 | disposition home or self-care (01) ==
LOC: HO.HKASLDS 10:26
PROVIDERS: Internal Medicine; Visit Provider Psychiatry & Neurology Neurology
DX: R41.3 Other amnesia (principal); R00.2 Palpitations; I25.10 Atherosclerotic heart disease of native coronary artery without angina pectoris; I49.1 Atrial premature depolarization; F41.1 Generalized anxiety disorder
CPT/HCPCS: 36415; 80053; 82306; 82607; 85025; 99202

== ENCOUNTER 2023-06-17 12:46 | Outpatient (AMB) | payer MEDICARE, SELFPAY ==
[2023-06-17 13:10] VITALS: BP 128/68; PULSE 77; BMI 20.5
--- NOTE | 2023-06-17 13:10 | A.OFFVIS_ITS ---
Intake Vital Signs 06/17/23 13:10 Height 4 ft 11 in Weight 101 lb 6.602 oz BMI 20.5 BP 128/68 Blood Pressure Location Lt brachial Position Sitting Pulse 77 Pulse Source Monitor Intake Visit Reasons: 2 yr follow up Intake Note: 2 year follow up with EKG PT feels good Accompanied by: Daughter Allergies epinephrine [EPINEPHRINE] Allergy (Severe, Verified 06/05/23 09:36) CHEST POUNDING, palpitations, palpitations Pwbmlem-CHT-AhP Reductase Inhibitor [FXFGIAP-BLE-ADQ REDUCTASE INHIBITOR] Allergy (Intermediate, Verified 06/05/23 09:36) MUSCLE PAINS Ez[place]imbie Adverse Reaction (Unknown, Uncoded 06/05/23 09:36) Muscle pain Medication List - Last Reconciled 06/17/23 by Kong Rogers MD amlodipine 5 mg (2 x 2.5 mg) PO DAILY 90 days aspirin (Adult Low Dose Aspirin) 81 mg PO DAILY cholecalciferol (vitamin D3) 62.5 mcg PO QAM coenzyme Q10 (Co Q-10) PO DAILY escitalopram oxalate 5 mg PO DAILY 90 days metoprolol succinate ER 100 mg PO DAILY nitroglycerin 0.4 mg sublingual Q5M PRN omega-3 fatty acids (Fish Oil Concentrate) PO DAILY HPI HPI Comments History of Present Illness Details Maryam comes for follow-up. She is accompanied by her daughter. She has no significant cardiac symptoms at this point time. She is stopped measuring blood pressures at home. She says she gets very rarely palpitations. The last 1 happened about 2 weeks ago she woke up and had rapid palpitations that lasted few seconds. No prolonged irregular heartbeat or palpitations. No lightheadedness, syncope. No exertional chest pain or shortness of breath. She says a blood pressures been generally well controlled. She was prescribed escitalopram and says her anxiety level has improved. [facility] Medical History Family history of Alzheimer's disease Difficulty hearing CAD (coronary artery disease) PAC (premature atrial contraction) HTN (hypertension) Surgical History H/O thyroidectomy Hx of cardiac cath Family History Father CVD (cardiovascular disease) Mother No problems noted. Social History Housing: House Patient Tobacco Use Status: Never used Tobacco e-Cigarette/Vaping Use: Never Used Second Hand Smoke Exposure: No service: No Current occupational status: retired Cognitive needs: No Hearing needs: No Vision needs: Yes Review of Systems Const Denies weakness ENT Denies dizziness Card Denies chest pain, Denies chest pain with activity, Denies syncope, Denies rapid heart rate, Denies pedal edema, Denies edema, Denies leg edema, Denies lightheadedness, Denies palpitations, Denies dyspnea, Denies dyspnea on exertion and Denies orthopnea Resp Denies cough, Denies dyspnea and Denies dyspnea on exertion GI Denies hematochezia and Denies change in stool character Musc Denies abnormal gait, Denies muscle cramps, Denies muscle weakness, Denies numbness, Denies radiating pain into limb and Denies tingling Neuro Denies abnormal gait, Denies dizziness, Denies syncope, Denies numbness, Denies tingling and Denies weakness Endo Denies palpitations Physical Exam Vital Signs: Last Vital Signs Pulse 77 06/17/23 13:10 BP 128/68 06/17/23 13:10 BMI result Body Mass Index 20.5 Const General: cooperative, comfortable, no acute distress, alert, awake, anxious and well groomed Nutritional Appearance: thin Orientation/consciousness: patient oriented x3 Limitations: no limitations Neck Neck: Yes trachea midline, Yes supple and Yes no JVD Resp Effort & Inspection: normal respiratory effort Auscultation: clear to auscultation bilaterally Cardio Jugular venous distension: no JVD Palpation: normal PMI Rate: regular rate Rhythm: regular rhythm Heart sounds: S1 normal heart sound present, S2 normal heart sound present, no click, no gallops, no murmurs and Other heart sounds present (Soft S4 present) GI Auscultation: normal bowel sounds Skin General skin exam: no rashes or lesions noted Neuro General: patient oriented x3 and no focal motor deficits Extrem General: Yes no clubbing, cyanosis or edema Office Procedures EKG Details: EKG shows normal sinus rhythm with normal EKG [id number], Complete Assessment & Plan Assessment & Plan (1) CAD (coronary artery disease): Comment: Nonobstructive by cardiac catheterization Code(s): I25.10 - Atherosclerotic heart disease of [place] coronary artery without angina pectoris Qualifiers: Coronary Disease-Associated Artery/Lesion type: [place] artery [place] vs. transplanted heart: [place] heart Associated angina: without angina Qualified Code(s): I25.10 - Atherosclerotic heart disease of [place] coronary artery without angina pectoris Plan: CAD, nonobstructive by cardiac catheterization. Likelihood of progressive CAD at her age is low. There is still likelihood of acute coronary syndrome. Although continue aggressive risk factor modification. Continue low-dose aspirin therapy. Continue maintain activity level as tolerated. Continue aggressive blood pressure control. (2) PAC (premature atrial contraction): Code(s): I49.1 - Atrial premature depolarization Plan: PACs in the past causing a lot of symptoms. Symptoms have significantly improved with treatment of her anxiety. Also current metoprolol therapy is helping. Avoidance of stimulants was discussed. Stress mitigation strategies to be pursued. (3) HTN (hypertension): Code(s): I10 - Essential (primary) hypertension Qualifiers: Hypertension type: unspecified Qualified Code(s): I10 - Essential (primary) hypertension Plan: Hypertension which is currently well optimized advised to monitor blood pressure at home maintain a log. Goal blood pressure less than 140/84. Continue current therapy. Avoidance of salt loading was discussed. Follow up in the clinic if need be. Thank you for allowing me to partake in her care Coding Level of Care Code Est Pt Level 4 (67614) Diagnoses Coronary artery disease involving [place] coronary artery of [place] heart without angina pectoris I25.10 Coronary Disease-Associated Artery/Lesion type: [place] artery [place] vs. transplanted heart: [place] heart Associated angina: without angina PAC (premature atrial contraction) I49.1 HTN (hypertension) I10 Hypertension type: unspecified CPT Codes EKG - CPT: 48439-[id number], Complete ([id number])
== END 2023-06-17 13:32 | disposition home or self-care (01) ==
PROVIDERS: PCP Internal Medicine; Visit Provider Internal Medicine Cardiovascular Disease
DX: I25.10 Atherosclerotic heart disease of native coronary artery without angina pectoris (principal); I49.1 Atrial premature depolarization; I10 Essential (primary) hypertension
CPT/HCPCS: 93010; 99214

== ENCOUNTER → 2023-06-17 12:46 | Outpatient (BNVA) | payer MEDICARE, SELFPAY | PROVIDERS: PCP Internal Medicine; Visit Provider Internal Medicine Cardiovascular Disease | DX: I25.10 Atherosclerotic heart disease of native coronary artery without angina pectoris (principal); I49.1 Atrial premature depolarization; I10 Essential (primary) hypertension | CPT/HCPCS: 93005; 99212 ==

== ENCOUNTER 2023-07-23 10:10 | Outpatient (REF) | payer MEDICARE, SELFPAY ==
--- NOTE | ~2023-07-23 | MR_ITS ---
EXAMINATION: MR BRAIN WITHOUT CONTRAST NEUROQUANT CLINICAL INFORMATION: Memory issues for 2 years COMPARISON: None. TECHNIQUE: Multiplanar, multisequence MR imaging was performed through the brain without the use of intravenous gadolinium. Additional high-resolution anatomic imaging was performed through the brain and images were submitted for post processing including auto-segmentation and volumetric analysis. FINDINGS: No acute intracranial hemorrhage or infarct. Scattered and confluent periventricular and deep white matter T2/FLAIR hyperintensities, nonspecific however commonly seen with small vessel ischemic disease. Diffuse prominence of the sulci with associated mild ex vacuo dilation of the ventricles compatible with global cerebral atrophy. No midline shift or hydrocephalus. No acute extra-axial fluid collections. The osseous structures are unremarkable. The pituitary gland, pineal gland and remaining midline structures are unremarkable. No orbital pathology. Mild mucosal thickening of the ethmoid sinuses. Bilateral mastoid effusions. Baseline NeuroQuant volumetric assessment of the hippocampi was subsequently performed. Quantitative hippocampal volumes are estimated at an age-adjusted normative percentile of 12%. Lateral ventricular size is estimated at a normative percentile rank of 86%, and the inferior lateral ventricles are estimated at 48%. MR/MR brain wo con w neuroquant IMPRESSION: -Baseline volumetric measurements do not support a diagnosis of primary Alzheimer's dementia at the present time. 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 -Bilateral mastoid effusions.
== END 2023-07-23 10:11 | disposition home or self-care (01) ==
LOC: HO.MRI 10:10
PROVIDERS: PCP Internal Medicine; Visit Provider Psychiatry & Neurology Neurology
DX: R41.3 Other amnesia (principal)
CPT/HCPCS: 70551; 76377

== ENCOUNTER 2023-08-20 08:53 | Outpatient (AMB) | payer MEDICARE, SELFPAY ==
[2023-08-20 08:55] VITALS: BP 136/62; PULSE 86; O2SAT 96; BMI 22.9
--- NOTE | 2023-08-20 08:55 | A.OFFVIS_ITS ---
Intake Vital Signs 08/20/23 08:55 Height 4 ft 11 in Weight 113 lb 6 oz BMI 22.9 BP 136/62 Blood Pressure Location Lt brachial Position Sitting Pulse 86 Pulse Source Pulse Oximeter Pulse Oximetry (%) 96 Oxygen Delivery Method Room Air Intake Visit Reasons: [facility] G0439 Allergies epinephrine [EPINEPHRINE] Allergy (Severe, Verified 08/20/23 08:59) CHEST POUNDING, palpitations, palpitations Qbjzdqm-AQS-ZtF Reductase Inhibitor [SLELCJA-DTU-LSZ REDUCTASE INHIBITOR] Allergy (Intermediate, Verified 08/20/23 08:59) MUSCLE PAINS Ezetimbie Adverse Reaction (Unknown, Uncoded 06/05/23 09:36) Muscle pain Medication List - Last Reconciled 08/20/23 by Riaz Da Silva MD amlodipine 5 mg (2 x 2.5 mg) PO DAILY 90 days ascorbic acid (vitamin C) 500 mg PO DAILY aspirin (Adult Low Dose Aspirin) 81 mg PO DAILY cholecalciferol (vitamin D3) 62.5 mcg PO QAM coenzyme Q10 (Co Q-10) PO DAILY escitalopram oxalate 5 mg PO DAILY 90 days metoprolol succinate ER 100 mg PO DAILY nitroglycerin 0.4 mg sublingual Q5M PRN omega-3 fatty acids (Fish Oil Concentrate) PO DAILY Do you need a note to return to daycare/school/sports/work: No HPI [facility] G0439 HPI Details Labs were done May of this year reviewed again New set of lab order placed Blood pressure is 136/62 Patient is taking amlodipine 2.5 mg And metoprolol 100 mg daily Anxiety is stable with Lexapro 5 mg HPI Comments History of Present Illness Details AWV Medical/social history reviewed Past medical history reviewed [place] of care / care team list updated Surgical/ hospitalization history reviewed Current medications including OTC and supplements reviewed Family history reviewed Tobacco controlled form updated Alcohol use form updated Illicit drug use in social history reviewed Current diagnosis of depression ?screening updated Appropriate PHQ 2/PHQ-9 completed . Vital signs reviewed Alcohol tobacco drug use reviewed and discussed . MMSE completed . ? Fall risk: ?Assessed Fall history: ?None Have you had any falls with injury in the past year?? No Have you had 2 or more falls in the past year?? No Fall risk assessment completed Home safety discussed with the patient Functional ability assessed and discussed and documented Activities of daily living reviewed and appropriate actions taken . HRA filled out by the patient and reviewed by provider and scanned . Appropriate written screening schedule established . Any health advise needed provided . Advance care planning discussed with the patient , necessary paperwork filled Examination IPPE/AWE: Balance intact Romberg intact Tandem walk Failed walk-in turn intact rise from sit to stand intact . ?Hearing ?whisper test failed . Medication list reviewed, patient is stable on medications All other providers patient is seeing discussed and noted . [facility] Medical History Family history of Alzheimer's disease Difficulty hearing CAD (coronary artery disease) PAC (premature atrial contraction) HTN (hypertension) Surgical History H/O thyroidectomy Hx of cardiac cath Family History Father CVD (cardiovascular disease) Mother No problems noted. Social History Housing: House Patient Tobacco Use Status: Never used Tobacco e-Cigarette/Vaping Use: Never Used Second Hand Smoke Exposure: No service: No Current occupational status: retired Cognitive needs: No Hearing needs: No Vision needs: Yes Questionnaire Medicare Wellness Checkup What is your age?: 79 or older What gender do you identify with?: female During the past 4 weeks, how much have you been bothered by emotional problems such as feeling anxious, depressed, irritable, sad or downhearted, and blue?: not at all During the past 4 weeks, has your physical & emotional health limited your social activities with family, friends, neighbors, or groups?: not at all During the past 4 weeks, how much bodily pain have you generally had?: no pain During the past 4 weeks, was someone available to help you if you needed & wanted help?: yes, as much as I wanted During the past 4 weeks, what was the hardest physical activity you could do for at least 2 minutes?: moderate Can you get to places out of walking distance without help? (For eg., can you travel alone on buses, taxis or drive your car?): No Can you go shopping for groceries or clothes without someone's help?: No Can you prepare your own meals?: Yes Can you do your housework without help?: Yes Because of any health problems, do you need the help of another person with your personal care needs such as eating, bathing, dressing or getting around the manisha se?: No Can you handle your own money without help?: Yes During the past 4 weeks, how would you rate your health in general?: very good During the past 4 weeks how have things been going for you?: very well; could hardly better Are you having difficulties driving your car?: not applicable, I don't use a car Do you always fasten your seat belt when you are in a car?: yes, usually During past 4 weeks, have you been bothered by the following: never: Falling or dizzy when standing up, Sexual problems?, Trouble eating well?, Teeth or denture problems? and Problems using the telephone? and seldom: Tiredness or fatigue? Have you fallen 2 or more times in the past year?: No Are you afraid of falling?: No Are you a smoker?: no During the past 4 weeks, how many drinks of wine, beer, or other alcoholic beverages did you have?: no alcohol at all Do you exercise for about 20 minutes 3 or more times a week?: no, I usually do not exercise this much Have you been given information to help with the following?: no: Hazards in your house that might hurt you? and no: Keeping track of your medications? How often do you have trouble taking medicines the way you have been told to take them?: I always take medicine as prescribed How confident are you that you can control & manage most of your health problems?: very confident What is your race?: White Mini Mental State Exam (MMSE) Orientation What is the (year) (season) (date) (day) (month)?: year, season, date, day and month Where are we (state) (county) (town or city) (hospital) (floor)?: state, county, town or city, hospital/clinic and floor Score Score: 10 Activity of Daily Living Bathing - sponge bath, tub bath or shower: receives no assistance (gets in/out by self, if usual bathing means Dressing - getting clothes from closets & drawers, including inner/outer garments & fasteners.: gets clothes & gets completely dressed without help Toileting - going to the 'toilet room' for urine/bowel elimination & cleaning self/arranging clothes: goes to toilet room, cleans self, arranges clothes without help Transfer: moves in & out of bed and chair without help (may use support object) Continence: controls urination/bowel movements completely by self Feeding: feeds self without help Total Score: 0 Information obtained from: patient Using telephone: independent Traveling: dependent Shopping: dependent Preparing meals: independent Housework: dependent Taking medicine: independent Managing money: independent PHQ-9 Over the last 2 weeks, how often have you been bothered by any of the following problems? 1. Little interest or pleasure in doing things: not at all 2. Feeling down, depressed, or hopeless: not at all 3. Trouble falling or staying asleep, or sleeping too much: not at all 4. Feeling tired or having little energy: not at all 5. Poor appetite or overeating: not at all 6. Feeling bad about yourself - or that you are a failure or have let yourself or your family down: not at all 7. Trouble concentrating on things, such as reading the newspaper or watching television: not at all 8. Moving or speaking so slowly that other people could have noticed. Or the opposite - being so fidgety or restless that you have been moving around a lot more than usual: not at all 9. Thoughts that you would be better off or of hurting yourself in some way: not at all Total score: 0 Depression Screening Interpretation: Negative Depression Screening Done: Yes 25885 - PHQ-9 Billing: Yes Source: Developed by Drs. Gutierrez Mays, Sarita Phipps, Omar Renteria and colleagues, with an educational belkis from [employer]. Review of Systems Const Denies chills and Denies fever(s) ENT Denies epistaxis and Denies nasal discharge Card Denies chest pain Resp Denies chest congestion, Denies cough and Denies hemoptysis GI Denies diarrhea and Denies nausea Skin/Breast Denies rash Neuro Reports no additional complaints Psych Reports no additional complaints Endo Reports no additional complaints Physical Exam Vital Signs: Last Vital Signs Pulse 86 08/20/23 08:55 BP 136/62 08/20/23 08:55 Pulse Ox 96 08/20/23 08:55 Oxygen Delivery Method Room Air 08/20/23 08:55 BMI result Body Mass Index 22.9 Const General: cooperative, comfortable and no acute distress Orientation/consciousness: patient oriented x3 HEENT Head: Yes normocephalic Eyes General: appearance normal, both eyes and all related structures Neck Other: Supple Neck: Yes supple Resp Effort & Inspection: normal respiratory effort, no cough and no stridor Cardio Rhythm: regular rhythm Heart sounds: S1 normal heart sound present and S2 normal heart sound present Skin General skin exam: turgor normal Neuro Other: Motor sensory intact General: patient oriented x3, tone normal and moves all extremities Extrem Other: No lower extremity swelling. Right lower extremity: no edema Left lower extremity: no edema Psych Other: Normal effect, speech clear Assessment & Plan Assessment & Plan (1) Medicare annual wellness visit, subsequent: Code(s): Z00.00 - Encounter for general adult medical examination without abnormal findings (2) Hypertension, essential: Code(s): I10 - Essential (primary) hypertension (3) Anxiety, generalized: Code(s): F41.1 - Generalized anxiety disorder (4) CAD (coronary artery disease): Comment: Nonobstructive by cardiac catheterization Code(s): I25.10 - Atherosclerotic heart disease of [place] coronary artery without angina pectoris Qualifiers: Associated angina: without angina Coronary Disease-Associated Artery/Lesion type: [place] artery [place] vs. transplanted heart: [place] heart Qualified Code(s): I25.10 - Atherosclerotic heart disease of [place] coronary artery without angina pectoris (5) Palpitations: Code(s): R00.2 - Palpitations Plan Labs were done May of this year reviewed again New set of lab order placed Blood pressure is 136/62 Patient is taking amlodipine 2.5 mg And metoprolol 100 mg daily Anxiety is stable with Lexapro 5 mg Orders: Orders Comprehensive [place]. Panel Fast Today F41.1 - Generalized anxiety disorder, I10 - Essential (primary) hypertension, I25.10 - Atherosclerotic heart disease of [place] coronary artery without angina pectoris, R00.2 - Palpitations TSH reflex Free T4 Today F41.1 - Generalized anxiety disorder, I10 - Essential (primary) hypertension, I25.10 - Atherosclerotic heart disease of [place] coronary artery without angina pectoris, R00.2 - Palpitations Vitamin D 25-OH (D2 and D3) Today F41.1 - Generalized anxiety disorder, I10 - Essential (primary) hypertension, I25.10 - Atherosclerotic heart disease of [place] coronary artery without angina pectoris, R00.2 - Palpitations Complete Blood Count Auto Diff Today F41.1 - Generalized anxiety disorder, I10 - Essential (primary) hypertension, I25.10 - Atherosclerotic heart disease of [place] coronary artery without angina pectoris, R00.2 - Palpitations Lipid Panel Today F41.1 - Generalized anxiety disorder, I10 - Essential (primary) hypertension, I25.10 - Atherosclerotic heart disease of [place] coronary artery without angina pectoris, R00.2 - Palpitations Vitamin B12 Today F41.1 - Generalized anxiety disorder, I10 - Essential (primary) hypertension, I25.10 - Atherosclerotic heart disease of [place] coronary artery without angina pectoris, R00.2 - Palpitations Quality Reporting (2020) Depression/Bipolar (159/160/161/177) PHQ-9: Total score: 0 Coding Level of Care Code Medicare Subsequent (G0439) Est Pt Level 3 (52753) Diagnoses Medicare annual wellness visit, subsequent Z00.00 Hypertension, essential I10 Anxiety, generalized F41.1 Coronary artery disease involving [place] coronary artery of [place] heart without angina pectoris I25.10 Associated angina: without angina Coronary Disease-Associated Artery/Lesion type: [place] artery [place] vs. transplanted heart: [place] heart Palpitations R00.2 CPT Codes Advance Care Planning - Time spent: 1-15 minutes, not on file ([id number]) Advance Care Planning Advance Care Planning discussion: Completed/Scanned Forms completed: MOLST Time spent: 1-15 minutes, not on file
== END 2023-08-20 09:26 | disposition home or self-care (01) ==
PROVIDERS: PCP Internal Medicine; Visit Provider Internal Medicine
DX: Z00.00 Encounter for general adult medical examination without abnormal findings (principal); I10 Essential (primary) hypertension; F41.1 Generalized anxiety disorder; I25.10 Atherosclerotic heart disease of native coronary artery without angina pectoris; R00.2 Palpitations
CPT/HCPCS: 1124F; G0439

== ENCOUNTER 2023-12-09 07:12 | Outpatient (REF) | payer MEDICARE, SELFPAY ==
[2023-12-09 07:29] LABS: MANUAL DIFF FLAG NO
[2023-12-09 07:50] LABS: Basophils Percent Auto 0.4 % (0-2); Eosinophils Absolute Auto 0.3 X10*3/uL (0.0-0.4); Eosinophils Percent Auto 3.9 % (0-4); Hematocrit 40.4 % (37.0-47.0); Hemoglobin 13.4 g/dl (12.0-16.0); Imm Gran Abs Auto 0.02 X10*3/uL (0.00-0.03); Imm Gran Pct Auto 0.3 % (0.0-0.4); Lymphocytes Absolute Auto 3.7 X10*3/uL (1.2-4.9); Lymphocytes Percent Auto 47.2 % (20-40); Mean Corpuscular HGB Conc 33.2 g/dl (31.0-35.0); Mean Corpuscular Hemoglobin 29.8 pg (27.0-33.0); Mean Platelet Volume 9.8 fL (9.4-12.3); Monocytes Absolute Auto 0.7 X10*3/uL (0.1-1.2); Monocytes Percent Auto 9.1 % (2-11); Neutrophils Absolute Auto 3.1 x10*3/uL (2.0-8.3); Neutrophils Percent Auto 39.1 % (45-73); Platelet Count 270 X10*3/uL (160-400); Red Blood Count 4.49 X10*6/uL (4.20-5.50); Red Cell Distribution Width 12.3 % (11.0-16.0); White Blood Count 7.8 X10*3/uL (4.8-10.8)
[2023-12-09 08:31] LABS: Alanine Aminotransferase 17 U/L (0-31); Albumin Level 3.8 g/dL (3.5-5.0); Alkaline Phosphatase 58 U/L (39-117); Anion Gap 13 (12-20); Aspartate Amino Transferase 22 U/L (5-31); Bilirubin Total 0.7 mg/dL (0.0-1.0); Blood Urea Nitrogen 13 mg/dL (9-16); Carbon Dioxide 27 mmol/L (22-29); Chloride 107 mmol/L (96-108); Cholesterol 207 mg/dL (<200); Estimated Glomerular Filt Rate > 60; Glucose Fasting 107 mg/dL (60-99); HDL Cholesterol 62 mg/dL (>40); LDL Cholesterol Calculated 127 mg/dL (<100); Potassium 4.1 mmol/L (3.3-5.1); Sodium 143 mmol/L (135-145); Total Protein 6.4 g/dL (6.5-8.0); Triglycerides 92 mg/dL (<150)
[2023-12-09 08:34] LABS: TSH reflex Free T4 < 0.01 uIU/mL (0.32-4.0)
[2023-12-09 08:47] LABS: Vitamin B12 > 2000 pg/mL (200-900)
[2023-12-13 16:19] LABS: Vitamin D 25-OH, D2 <4 ng/mL; Vitamin D 25-OH, D3 32 ng/mL; Vitamin D 25-OH, Total 32 ng/mL (30-100)
== END 2023-12-09 07:13 | disposition home or self-care (01) ==
LOC: HO.LAB 07:12
PROVIDERS: PCP Internal Medicine; Visit Provider Internal Medicine
DX: I10 Essential (primary) hypertension (principal); F41.1 Generalized anxiety disorder; R00.2 Palpitations; I25.10 Atherosclerotic heart disease of native coronary artery without angina pectoris
CPT/HCPCS: 36415; 80053; 80061; 82306; 82607; 84439; 84443; 85025

== ENCOUNTER 2023-12-11 13:16 | Outpatient (AMB) | payer MEDICARE, SELFPAY ==
--- NOTE | 2023-12-11 13:18 | MHC.OFFVIS ---
Vital Signs 12/11/23 13:19 Height 4 ft 11 in Weight 102 lb 6 oz BMI 20.7 BP 152/68 H Blood Pressure Location Rt brachial Position Sitting Respiration 16 Pulse 88 Pulse Source Pulse Oximeter Pulse Oximetry (%) 100 Oxygen Delivery Method Room Air Intake Visit Reasons: 6 month F/U Intake Note: Pt presents to the office for a 6 month follow up for memory change. 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 Allergies epinephrine [EPINEPHRINE] Allergy (Severe, Verified 12/11/23 13:19) CHEST POUNDING, palpitations, palpitations Ccivkhd-LXG-TmN Reductase Inhibitor [UDLLXOB-GXS-VUR REDUCTASE INHIBITOR] Allergy (Intermediate, Verified 12/11/23 13:19) MUSCLE PAINS Ezetimbie Adverse Reaction (Unknown, Uncoded 12/11/23 13:19) Muscle pain Medication List - Last Reconciled 12/11/23 by Steffany Maldonado MD amlodipine 5 mg (2 x 2.5 mg) PO DAILY 90 days ascorbic acid (vitamin C) 500 mg PO DAILY aspirin (Adult Low Dose Aspirin) 81 mg PO DAILY cholecalciferol (vitamin D3) 62.5 mcg PO QAM coenzyme Q10 (Co Q-10) PO DAILY escitalopram oxalate 5 mg PO DAILY 90 days metoprolol succinate ER 100 mg PO DAILY nitroglycerin 0.4 mg sublingual Q5M PRN omega-3 fatty acids (Fish Oil Concentrate) PO DAILY HPI Comments Details: 88y/o right handed female comes for follow up of memory issues. No worsening since her last visit. Her mood is stable.she has a pill dispenser which is helping her. History from initial visit-she is accompanied by her 2 daughters who help with history.Her daughters noticed that she was having some forgetfulness about 4 years ago . Since her of Alzheimers 2 years ago the cognition worsened. she frequently repeats questions, has trouble remembering conversations, she forgot that her grand daughter was ,she lives alone but has someone managing her medications, loses her keys check book etc. she still remembers her phone numbers but frequently mixes her childrens names. Since her passed she has been very anxious. she was started on lexapro and that has helped significantly.she still manages to prepare her meals- simple, can dress and shower.No sleep issues. when she came for appointment she id not want to come into the office for fear of being diagnosed with dementia. [facility] Medical History Family history of Alzheimer's disease Difficulty hearing CAD (coronary artery disease) PAC (premature atrial contraction) HTN (hypertension) Surgical History H/O thyroidectomy Hx of cardiac cath Family History Father CVD (cardiovascular disease) Mother No problems noted. Social History Housing: House Patient Tobacco Use Status: Never used Tobacco e-Cigarette/Vaping Use: Never Used Second Hand Smoke Exposure: No service: No Current occupational status: retired Cognitive needs: No Hearing needs: No Vision needs: Yes Physical Exam Vital Signs: Last Vital Signs Pulse 88 12/11/23 13:19 Resp 16 12/11/23 13:19 BP 152/68 H 12/11/23 13:19 Pulse Ox 100 12/11/23 13:19 Oxygen Delivery Method Room Air 12/11/23 13:19 BMI result Body Mass Index 20.7 Const General: cooperative, healthy appearing, comfortable, no acute distress and anxious Nutritional Appearance: average body habitus Orientation/consciousness: patient oriented x3 Limitations: no limitations Eyes Pupils: Equal, round and reactive pupils present Neuro Other: MOCA General: patient oriented x3, tone normal, moves all extremities and no focal motor deficits Cranial nerves: Yes Equal, round and reactive pupils present, Yes Bilaterally intact EOM present, Yes Nystagmus not present, Yes Normal facial strength present, Yes Midline tongue present and Yes Symmetric palate elevation present Cognition (Neuro): normal cognition Gait exam (Neuro): Other gait observations present (mild slow gait) Motor exam (neuro): 5/5 motor strength present throughout and Normal motor muscle tone present throughout Coordination: ztjmme-xu-ngky test normal Psych Affect: Anxious affect present Assessment & Plan Assessment & Plan (1) Memory change: Comment: age related, anxiety Code(s): R41.3 - Other amnesia Category: Medical Plan MRI brain results reviewed escitalopram 5 mg qd Suggested cognitive exercises. Refer to Speech and hearing for cognitive therapy Coding Level of Care Code Est Pt Level 4 (04317) Diagnoses Memory change R41.3
[2023-12-11 13:19] VITALS: BP 152/68; PULSE 88; RESP 16; O2SAT 100; BMI 20.7
== END 2023-12-11 13:58 | disposition home or self-care (01) ==
PROVIDERS: PCP Internal Medicine; Visit Provider Psychiatry & Neurology Neurology
DX: R41.3 Other amnesia (principal)
CPT/HCPCS: 99214

== ENCOUNTER → 2023-12-11 13:16 | Outpatient (BNVA) | payer MEDICARE, SELFPAY | PROVIDERS: PCP Internal Medicine; Visit Provider Psychiatry & Neurology Neurology | DX: R41.3 Other amnesia (principal) | CPT/HCPCS: 99212 ==

== ENCOUNTER 2023-12-27 13:59 | Outpatient (AMB) | payer MEDICARE, SELFPAY ==
[2023-12-27 14:10] VITALS: BP 146/68; PULSE 73; O2SAT 97; BMI 20.6
--- NOTE | 2023-12-27 14:10 | MHC.PC.OV ---
Vital Signs 12/27/23 14:10 Height 4 ft 11 in Weight 102 lb 2 oz BMI 20.6 BP 146/68 H Blood Pressure Location Rt brachial Position Sitting Pulse 73 Pulse Source Pulse Oximeter Pulse Oximetry (%) 97 Oxygen Delivery Method Room Air Intake Visit Reasons: 4M F/U Allergies epinephrine [EPINEPHRINE] Allergy (Severe, Verified 12/27/23 14:12) CHEST POUNDING, palpitations, palpitations Cahnknk-IMM-DpE Reductase Inhibitor [IHSBIOO-LOL-MNO REDUCTASE INHIBITOR] Allergy (Intermediate, Verified 12/27/23 14:12) MUSCLE PAINS Ezetimbie Adverse Reaction (Unknown, Uncoded 12/11/23 13:19) Muscle pain Medication List - Last Reconciled 12/27/23 by Riaz Da Silva MD amlodipine 5 mg (2 x 2.5 mg) PO DAILY 90 days ascorbic acid (vitamin C) 500 mg PO DAILY aspirin (Adult Low Dose Aspirin) 81 mg PO DAILY cholecalciferol (vitamin D3) 62.5 mcg PO QAM coenzyme Q10 (Co Q-10) PO DAILY escitalopram oxalate 5 mg PO DAILY 90 days metoprolol succinate ER 100 mg PO DAILY nitroglycerin 0.4 mg sublingual Q5M PRN omega-3 fatty acids (Fish Oil Concentrate) PO DAILY Tobacco use date assessed: 12/27/23 Fall risk assessment: No Falls in past year Last assessed Fall Risk: 12/27/23 Dental Screening Dental Screen Date: 12/27/23 Did you have a dental visit in the last 12 months?: Yes Did you have a dental problem in the last 6 months where you did not have access to dental care?: No Was dental information given to patient?: Patient has dentist HPI 4M F/U HPI Details Patient is 88-year-old female came in today for her follow-up appointment Patient's daughter Gabbi is also present during this visit Labs done last year reviewed B12 level is too high, patient will be discontinuing B12 supplement for 3 months and then once a twice a week Her thyroid test came back abnormal with TSH level of less than 0.01 She has appointment coming up with anatomy and physiology instructor, meanwhile I will repeat the level with thyroid antibodies Anxiety stable with the escitalopram 5 mg Palpitations are stable as well patient is on metoprolol 100 mg daily Patient is seeing neurologist for cognitive disorder and will be going through cognitive therapy soon Patient is doing well otherwise She will return in six-month now [facility] Medical History Cognitive and behavioral changes Family history of Alzheimer's disease Difficulty hearing CAD (coronary artery disease) PAC (premature atrial contraction) HTN (hypertension) Surgical History H/O thyroidectomy Hx of cardiac cath Family History Father CVD (cardiovascular disease) Mother No problems noted. Social History Housing: House Patient Tobacco Use Status: Never used Tobacco e-Cigarette/Vaping Use: Never Used Second Hand Smoke Exposure: No service: No Current occupational status: retired Cognitive needs: No Hearing needs: No Vision needs: Yes Questionnaire PHQ-9 Over the last 2 weeks, how often have you been bothered by any of the following problems? 1. Little interest or pleasure in doing things: not at all 2. Feeling down, depressed, or hopeless: not at all 3. Trouble falling or staying asleep, or sleeping too much: not at all 4. Feeling tired or having little energy: several days 5. Poor appetite or overeating: not at all 6. Feeling bad about yourself - or that you are a failure or have let yourself or your family down: not at all 7. Trouble concentrating on things, such as reading the newspaper or watching television: not at all 8. Moving or speaking so slowly that other people could have noticed. Or the opposite - being so fidgety or restless that you have been moving around a lot more than usual: not at all 9. Thoughts that you would be better off or of hurting yourself in some way: not at all Total score: 1 Depression Screening Interpretation: Negative Depression Screening Done: Yes 52823 - PHQ-9 Billing: Yes Source: Developed by Drs. Gutierrez Mays, Sarita Phipps, Omar Renteria and colleagues, with an educational belkis from [employer]. Thrive Questionnaire Date Thrive assessed: 12/27/23 I am a: Parent/Caregiver What is your living situation today?: I have a steady place to live Within the past 12 months, did the food you bought not last and you didn't have the money to get more?: Never true Within the past 12 months, did you worry whether your food would run out before you got money to buy more?: Never true Do you have trouble paying for medicines?: No Do you have trouble getting transportation to medical appointments?: No Do you have trouble paying your heating and electricity bill?: No Do you have trouble taking care of your child, family member or friend?: No Do you have trouble with day-to-day activities such as bathing, preparing meals, shopping, managing finances, etc.?: No Are you currently unemployed and looking for a job?: No Are you interested in more education?: No Please select the resources that you would like help with: None Currently or been in a relationship where the following occur: No concerns reported THRIVE Score: 0 AUDIT C Alcohol Use Questionnaire (AUDIT-C) 1. How often do you have a drink containing alcohol?: Monthly or less 2. How many drinks containing alcohol do you have on a typical day when you are drinking?: 1 or 2 3. How often do you have six or more drinks on one occasion?: Never Total Score: 1 Score Reviewed/Action Taken: Yes RC-7 AMB Questionnaire RC-7 Date RC - 7 assessed: 12/27/23 Feeling nervous, anxious, or on edge: 0 = Not at all Not being able to stop or control worryin = Not at all Worrying too much about different things: 0 = Not at all Trouble relaxin = Not at all Being so restless that it is hard to sit still: 0 = Not at all Becoming easily annoyed or irritable: 0 = Not at all Feeling afraid as if something awful might happen: 0 = Not at all Total RC-7 score (0-4 normal; 5-9 mild; 10-14 moderate; 15-21 severe): 0 Source: Developed by Drs. Gutierrez Mays, Sarita Phipps, Omar Renteria and colleagues, with an educational belkis from [employer]. RC-7 Assessment Billing RC-7 Assessment Tool: RC-7 Assessment 63888 Review of Systems Const Denies chills and Denies fever(s) ENT Denies epistaxis and Denies nasal discharge Card Denies chest pain Resp Denies chest congestion, Denies cough and Denies hemoptysis GI Denies diarrhea and Denies nausea Skin/Breast Denies rash Neuro Reports no additional complaints Psych Reports no additional complaints Endo Reports no additional complaints Physical exam (Primary Care) Vital Signs: Last Vital Signs Pulse 73 12/27/23 14:10 BP 146/68 H 12/27/23 14:10 Pulse Ox 97 12/27/23 14:10 Oxygen Delivery Method Room Air 12/27/23 14:10 BMI result Body Mass Index 20.6 Tobacco/Smoking Status: Tobacco use Status Tobacco use date assessed 12/27/23 12/27/23 14:15 Patient Tobacco Use Status Never used Tobacco 12/27/23 14:15 e-Cigarette/Vaping Use Never Used 12/27/23 14:15 PHQ-9: PHQ-9 Score PHQ-9: Total score 1 12/27/23 14:15 Depression Screening Interpretation: Negative Thrive Assessment: Date of Thrive Assessment Date Thrive assessed 12/27/23 12/27/23 14:15 Currently or been in a relationship where the following occur: No concerns reported Const General: cooperative, comfortable and no acute distress Orientation/consciousness: patient oriented x3 HENMT Head: Yes normocephalic Eyes General: appearance normal, both eyes and all related structures Neck Neck: Yes supple Resp Effort & Inspection: normal respiratory effort, no cough and no stridor Cardio Rhythm: regular rhythm Heart sounds: S1 normal heart sound present and S2 normal heart sound present Skin General skin exam: turgor normal Neuro General: patient oriented x3, tone normal and moves all extremities Extrem Right lower extremity: no edema Left lower extremity: no edema Coding Level of Care Code Est Pt Level 4 (47031) Complex EM visit Add On G2211 Diagnoses Low TSH level R79.89 Hypertension, essential I10 Anxiety, generalized F41.1 PAC (premature atrial contraction) I49.1 Coronary artery disease involving [place] coronary artery of [place] heart without angina pectoris I25.10 Coronary Disease-Associated Artery/Lesion type: [place] artery Ruby vs. transplanted heart: [place] heart Associated angina: without angina Cognitive and behavioral changes R41.89; R46.89 Additional Codes RC-7 Assessment Billing - RC-7 Assessment Tool: RC-7 Assessment 05639 ([id number]) Assessment & Plan Assessment & Plan (1) Low TSH level: Code(s): R79.89 - Other specified abnormal findings of blood chemistry Category: Medical (2) Hypertension, essential: Code(s): I10 - Essential (primary) hypertension Category: Medical (3) Anxiety, generalized: Code(s): F41.1 - Generalized anxiety disorder Category: Medical (4) PAC (premature atrial contraction): Code(s): I49.1 - Atrial premature depolarization Category: Medical (5) CAD (coronary artery disease): Comment: Nonobstructive by cardiac catheterization Code(s): I25.10 - Atherosclerotic heart disease of [place] coronary artery without angina pectoris Category: Medical Qualifiers: Coronary Disease-Associated Artery/Lesion type: [place] artery Ruby vs. transplanted heart: [place] heart Associated angina: without angina Qualified Code(s): I25.10 - Atherosclerotic heart disease of [place] coronary artery without angina pectoris (6) Cognitive and behavioral changes: Code(s): R41.89 - Other symptoms and signs involving cognitive functions and awareness; R46.89 - Other symptoms and signs involving appearance and behavior Category: Medical Plan Patient is 88-year-old female came in today for her follow-up appointment Patient's daughter Gabbi is also present during this visit Labs done last year reviewed B12 level is too high, patient will be discontinuing B12 supplement for 3 months and then once a twice a week Her thyroid test came back abnormal with TSH level of less than 0.01 She has appointment coming up with anatomy and physiology instructor, meanwhile I will repeat the level with thyroid antibodies Anxiety stable with the escitalopram 5 mg Palpitations are stable as well patient is on metoprolol 100 mg daily Patient is seeing neurologist for cognitive disorder and will be going through cognitive therapy soon Patient is doing well otherwise She will return in six-month now Orders: Orders TSH reflex Free T4 Today R79.89 - Other specified abnormal findings of blood chemistry Thyroglobulin Antibodies Today R79.89 - Other specified abnormal findings of blood chemistry Comprehensive Met. Panel 5 Months F41.1 - Generalized anxiety disorder, I10 - Essential (primary) hypertension, I25.10 - Atherosclerotic heart disease of [place] coronary artery without angina pectoris, R79.89 - Other specified abnormal findings of blood chemistry TSH reflex Free T4 5 Months F41.1 - Generalized anxiety disorder, I10 - Essential (primary) hypertension, I25.10 - Atherosclerotic heart disease of [place] coronary artery without angina pectoris, R79.89 - Other specified abnormal findings of blood chemistry Complete Blood Count Auto Diff 5 Months F41.1 - Generalized anxiety disorder, I10 - Essential (primary) hypertension, I25.10 - Atherosclerotic heart disease of [place] coronary artery without angina pectoris, R79.89 - Other specified abnormal findings of blood chemistry
== END 2023-12-27 14:57 | disposition home or self-care (01) ==
PROVIDERS: PCP Internal Medicine; Visit Provider Internal Medicine
DX: R79.89 Other specified abnormal findings of blood chemistry (principal); I10 Essential (primary) hypertension; F41.1 Generalized anxiety disorder; I49.1 Atrial premature depolarization; I25.10 Atherosclerotic heart disease of native coronary artery without angina pectoris; R41.89 Other symptoms and signs involving cognitive functions and awareness; R46.89 Other symptoms and signs involving appearance and behavior

== ENCOUNTER 2023-12-27 14:29 | Outpatient (REF) | payer MEDICARE, SELFPAY ==
[2023-12-27 17:05] LABS: TSH reflex Free T4 < 0.01 uIU/mL (0.32-4.0)
[2023-12-27 17:49] LABS: Free T4 (Free Thyroxine) 1.27 ng/dL (0.71-1.85)
[2023-12-31 02:08] LABS: Thyroglobulin Antibodies <1 IU/mL (< or = 1)
== END 2023-12-27 14:30 | disposition home or self-care (01) ==
LOC: HO.HMGCLDS 14:29
PROVIDERS: PCP Internal Medicine; Visit Provider Internal Medicine
DX: R94.6 Abnormal results of thyroid function studies (principal); I10 Essential (primary) hypertension; F41.1 Generalized anxiety disorder; I49.1 Atrial premature depolarization; I25.10 Atherosclerotic heart disease of native coronary artery without angina pectoris; R41.89 Other symptoms and signs involving cognitive functions and awareness; R46.89 Other symptoms and signs involving appearance and behavior; Z79.899 Other long term (current) drug therapy
CPT/HCPCS: 36415; 84439; 84443; 86800; 96127; 99212

== ENCOUNTER 2024-01-06 14:20 | Outpatient (AMB) | payer MEDICARE, SELFPAY ==
--- NOTE | 2024-01-06 14:22 | MHC.OFFVIS ---
Vital Signs 01/06/24 14:23 Height 4 ft 11 in Weight 101 lb 13.657 oz BMI 20.6 BP 178/70 H Blood Pressure Location Lt brachial Position Sitting Pulse 79 Pulse Source Pulse Oximeter Intake Visit Reasons: Other specified abnormal findings of blood Intake Note: Patient present today for other specified abnormal findings of blood. 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 Accompanied by: Daughter Allergies epinephrine [EPINEPHRINE] Allergy (Severe, Verified 12/27/23 14:12) CHEST POUNDING, palpitations, palpitations Sxvevru-QCS-IgH Reductase Inhibitor [EXMNEZO-LIM-NXF REDUCTASE INHIBITOR] Allergy (Intermediate, Verified 12/27/23 14:12) MUSCLE PAINS Ezetimbie Adverse Reaction (Unknown, Uncoded 12/11/23 13:19) Muscle pain Medication List - Last Reconciled 01/06/24 by Gutierrez Britt MD amlodipine 5 mg (2 x 2.5 mg) PO DAILY 90 days ascorbic acid (vitamin C) 500 mg PO DAILY aspirin (Adult Low Dose Aspirin) 81 mg PO DAILY cholecalciferol (vitamin D3) 62.5 mcg PO QAM coenzyme Q10 (Co Q-10) PO DAILY escitalopram oxalate 5 mg PO DAILY 90 days metoprolol succinate ER 100 mg PO DAILY nitroglycerin 0.4 mg sublingual Q5M PRN omega-3 fatty acids (Fish Oil Concentrate) PO DAILY HPI Comments Details: 88 YO F with PMHx [] who is seen in consultation for suppressed TSH the request of PCP. 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 Denies sensation of swelling in the neck or difficulty breathing while lying flat. Denies any tenderness in the neck. Denies any palpitations, tremors, weight loss, frequent bowel movements. Denies any ocular complaints, blurred or double vision. Denies use of amiodarone Denies use of recent iodinated contrast dye Denies any history of head or neck irradiation. Denies any family history of thyroid cancer. Denies use of biotin Thyroid US: Labs: [facility] Medical History Cognitive and behavioral changes Family history of Alzheimer's disease Difficulty hearing CAD (coronary artery disease) PAC (premature atrial contraction) HTN (hypertension) Surgical History H/O thyroidectomy Hx of cardiac cath Family History Father CVD (cardiovascular disease) Mother No problems noted. Social History Housing: House Patient Tobacco Use Status: Never used Tobacco e-Cigarette/Vaping Use: Never Used Second Hand Smoke Exposure: No service: No Current occupational status: retired Cognitive needs: No Hearing needs: No Vision needs: Yes Physical Exam Vital Signs: Last Vital Signs Pulse 79 01/06/24 14:23 BP 178/70 H 01/06/24 14:23 BMI result Body Mass Index 20.6 HEENT reveals absence of lid lag , stare or proptosis or eyebrow loss. Thyroid gland measure 15 gms . No nodules or tenderness palpated. There is no cervical adenopathy palpated. Lungs CTA. Heart S1, S2 Reg R/R -M/R/G. Abdominal exam benign. Skin exam reveals absence of dryness or thyroid dermopathy or vitiligo. Nail exam reveals absence of thyroid acropachy or oncholysis. Neurologic exam reveals 2+ reflexes . Muscle Strength is 5/5 proximally. There are no tremors in upper extremities. Assessment & Plan Assessment & Plan (1) Low TSH level: Code(s): R79.89 - Other specified abnormal findings of blood chemistry Category: Medical Plan: This 88-year-old female found to have a suppressed TSH with a prior history of thyroid surgery most likely due to multinodular goiter. Rule out T3 toxicosis. Most likely, the patient has a toxic multinodular goiter a toxic nodule considering her age and lack of family history of thyroid disease. However, Graves is differential diagnosis as well as thyroiditis less likely. Plan is to check TSH, free T4, free T3 and TRAB antibodies. Will also obtain iodine-123 uptake and scan 3 and 24 hours.. Contemplated using the idea of a beta-jessica but patient is relatively asymptomatic and heart rate is about 70 and regular. Depending upon above if consistent with a toxic multinodular goiter could treat with low-dose methimazole as patient has suppressed TSH is high risk for atrial fibrillation and congestive heart failure and/or worsening of coronary artery disease. Orders: Orders Thyroid Stimulating Hormone Today R79.89 - Other specified abnormal findings of blood chemistry Triiodothyronine T3 Free Today R7 - Other specified abnormal findings of blood chemistry Free T4 (Free Thyroxine) Today R7 - Other specified abnormal findings of blood chemistry Thyrotropin Receptor Antibody Today - Other specified abnormal findings of blood chemistry NM thyroid w uptake Today - Other specified abnormal findings of blood chemistry Coding Level of Care Code New Pt Level 4 (73370) Diagnoses Low TSH level
[2024-01-06 14:23] VITALS: BP 178/70; PULSE 79; BMI 20.6
== END 2024-01-06 15:04 | disposition home or self-care (01) ==
PROVIDERS: PCP Internal Medicine; Visit Provider Internal Medicine Endocrinology, Diabetes & Metabolism
DX: R79.89 Other specified abnormal findings of blood chemistry (principal)
CPT/HCPCS: 99204

== ENCOUNTER → 2024-01-06 14:20 | Outpatient (BNVA) | payer MEDICARE, SELFPAY | PROVIDERS: PCP Internal Medicine; Visit Provider Internal Medicine Endocrinology, Diabetes & Metabolism | DX: R79.89 Other specified abnormal findings of blood chemistry (principal) | CPT/HCPCS: 99202 ==

== ENCOUNTER 2024-01-07 14:27 | Outpatient (REF) | payer MEDICARE, SELFPAY ==
[2024-01-07 15:48] LABS: Free T4 (Free Thyroxine) 1.26 ng/dL (0.71-1.85); Thyroid Stimulating Hormone < 0.01 uIU/mL (0.32-4.0)
[2024-01-08 20:23] LABS: Triiodothyronine T3 Free 4.7 pg/mL (2.3-4.2)
== END 2024-01-07 14:28 | disposition home or self-care (01) ==
LOC: HO.LAB 14:27
PROVIDERS: PCP Internal Medicine; Visit Provider Internal Medicine Endocrinology, Diabetes & Metabolism
DX: R79.89 Other specified abnormal findings of blood chemistry (principal)
CPT/HCPCS: 36415; 83520; 84439; 84443; 84481

== ENCOUNTER → 2024-02-06 09:17 | Outpatient (REF) | payer MEDICARE, SELFPAY ==
--- NOTE | ~2024-02-06 | NM_ITS ---
EXAMINATION: THYROID UPTAKE AND SCAN CLINICAL INFORMATION: 88-year-old female with low TSH. Off methimazole for 3 to 4 days. COMPARISON: None. TECHNIQUE: Following the oral administration of 297 microcuries of I-123 sodium iodide, thyroid uptake was performed and expressed as a percentage of the administrated dose. Gamma scintillation camera images of the thyroid in the anterior and right and left anterior oblique views were obtained using a pinhole collimator following the administration of 10.0 mCi Tc-99m pertechnetate. FINDINGS: The uptake is 12.1% at 4 hours and 38.2% at 24 hours (Normal radioiodine uptake at 4 to 6 hours is about 5-15% and at 24 hours is 10% to 30%). The radioiodine uptake is slightly above normal. The radiopertechnetate thyroid scintigram demonstrates the thyroid gland to be normal in position. The right lobe of the thyroid gland appear significantly smaller. The left lobe of the thyroid gland is enlarged. Both lobes appear heterogenous and shows multiple variable sizes predominantly hypofunctioning/cold nodules and few areas of heterogenous iso intensities, consistent with multinodular goiter. The trapping function appears normal. Limited I-123 image shows concordance. NM/NM thyroid w uptake IMPRESSION: * The radioiodine uptake at 4 and 24 hours is slightly above normal as described above. * The right lobe of the thyroid gland is significantly asymmetrically smaller while the left lobe is enlarged. Morphologically appearance of the gland is consistent with multinodular goiter with predominant multiple variable sizes hypofunctioning/cold nodules seen bilaterally (left greater than right). Electronically signed by: Sydney Foster MD 02/24/2024 12:01 PM ANTONIO
== END ==
LOC: HO.NUCMED 09:17
PROVIDERS: PCP Internal Medicine; Visit Provider Internal Medicine Endocrinology, Diabetes & Metabolism
DX: R79.89 Other specified abnormal findings of blood chemistry (principal)
CPT/HCPCS: 78014; A9512; A9516

== ENCOUNTER 2024-02-07 10:20 | Outpatient (REF) | payer MEDICARE, SELFPAY ==
[2024-02-07 12:36] LABS: Free T4 (Free Thyroxine) 1.12 ng/dL (0.71-1.85); Thyroid Stimulating Hormone < 0.01 uIU/mL (0.32-4.0)
[2024-02-09 01:47] LABS: Triiodothyronine T3 Free 4.1 pg/mL (2.3-4.2)
== END 2024-02-07 10:21 | disposition home or self-care (01) ==
LOC: HO.LAB 10:20
PROVIDERS: PCP Internal Medicine; Visit Provider Internal Medicine Endocrinology, Diabetes & Metabolism
DX: R79.89 Other specified abnormal findings of blood chemistry (principal)
CPT/HCPCS: 36415; 84439; 84443; 84481

== ENCOUNTER 2024-02-10 12:34 | Outpatient (AMB) | payer MEDICARE, SELFPAY ==
--- NOTE | 2024-02-10 12:43 | MHC.OFFVIS ---
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 Accompanied by: Daughter Allergies epinephrine [EPINEPHRINE] Allergy (Severe, Verified 02/10/24 12:47) CHEST POUNDING, palpitations, palpitations Tfzpdpj-VNX-IqO Reductase Inhibitor [FMTCNTR-GYK-OCS REDUCTASE INHIBITOR] Allergy (Intermediate, Verified 02/10/24 12:47) MUSCLE PAINS Ez[place]imbie Adverse Reaction (Unknown, Uncoded 02/10/24 12:47) Muscle pain Medication List - Last Reconciled 02/10/24 by Gutierrez Britt MD amlodipine 5 mg (2 x 2.5 mg) PO DAILY 90 days ascorbic acid (vitamin C) 500 mg PO DAILY aspirin (Adult Low Dose Aspirin) 81 mg PO DAILY cholecalciferol (vitamin D3) 62.5 mcg PO QAM coenzyme Q10 (Co Q-10) PO DAILY escitalopram oxalate 5 mg PO DAILY 90 days methimazole 10 mg PO DAILY metoprolol succinate ER 100 mg PO DAILY nitrofurantoin monohyd/m-cryst 100 mg (Macrobid) 100 mg PO BID 7 days nitroglycerin 0.4 mg sublingual Q5M PRN omega-3 fatty acids (Fish Oil Concentrate) PO DAILY HPI Comments Details: 88 YO F with PMHx [] who is seen in consultation for suppressed TSH the request of PCP. 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 Denies sensation of swelling in the neck or difficulty breathing while lying flat. Denies any tenderness in the neck. Denies any palpitations, tremors, weight loss, frequent bowel movements. Denies any ocular complaints, blurred or double vision. Denies use of amiodarone Denies use of recent iodinated contrast dye Denies any history of head or neck irradiation. Denies any family history of thyroid cancer. Denies use of biotin Thyroid US: Labs: Currently on methimazole 10 mg q.d. with free T4 an upper normal and undetectable TSH. However, she was not taking the methimazole for 1 week's time prior to the blood work [facility] Medical History Cognitive and behavioral changes Family history of Alzheimer's disease Difficulty hearing CAD (coronary artery disease) PAC (premature atrial contraction) HTN (hypertension) Surgical History H/O thyroidectomy Hx of cardiac cath Family History Father CVD (cardiovascular disease) Mother No problems noted. Social History Housing: House Patient Tobacco Use Status: Never used Tobacco e-Cigarette/Vaping Use: Never Used Second Hand Smoke Exposure: No service: No Current occupational status: retired Cognitive needs: No Hearing needs: No Vision needs: Yes Physical Exam Vital Signs: Last Vital Signs Pulse 77 02/10/24 12:46 BP 112/52 L 02/10/24 12:46 Const Other: Thyroid gland is normal size weighs about 15 g . There are no thyroid nodules palpated Assessment & Plan Assessment & Plan (1) Low TSH level: Code(s): R79.89 - Other specified abnormal findings of blood chemistry Category: Medical Plan: This 88-year-old female found to have Graves disease and hyperthyroidism. Patient is currently on methimazole 10 mg q.d. with high normal free T4 and suppressed TSH Plan is to reinitiate the methimazole 10 mg q.d. stress compliance with this. Will recheck thyroid function studies in 4 weeks' time Orders: Orders Thyroid Stimulating Hormone 4 Weeks R7.89 - Other specified abnormal findings of blood chemistry Free T4 (Free Thyroxine) Today R7.89 - Other specified abnormal findings of blood chemistry Triiodothyronine T3 Free 4 Weeks R7. - Other specified abnormal findings of blood chemistry Coding Level of Care Code Est Pt Level 3 (30380) Diagnoses Low TSH level R79.89
[2024-02-10 12:46] VITALS: BP 112/52; PULSE 77
== END 2024-02-10 13:08 | disposition home or self-care (01) ==
PROVIDERS: PCP Internal Medicine; Visit Provider Internal Medicine Endocrinology, Diabetes & Metabolism
DX: R79.89 Other specified abnormal findings of blood chemistry (principal)
CPT/HCPCS: 99213

== ENCOUNTER → 2024-02-10 12:34 | Outpatient (BNVA) | payer MEDICARE, SELFPAY | PROVIDERS: PCP Internal Medicine; Visit Provider Internal Medicine Endocrinology, Diabetes & Metabolism | DX: R79.89 Other specified abnormal findings of blood chemistry (principal) | CPT/HCPCS: 99212 ==

== ENCOUNTER 2024-02-11 09:22 | Outpatient (REF) | payer MEDICARE, SELFPAY ==
[2024-02-11 13:18] LABS: Appearance Urine Cloudy; Color Urine Yellow; Glucose Urine UA Negative (Negative); Leukocyte Esterase Urine Large (3+) (Negative); Nitrite Urine Negative (Negative); PH 5.5 (5.0-9.0); Specific Gravity - Urine 1.015 (1.005-1.025); UMIC TRIGGER UACC YES; Urine Blood Trace (Negative); Urine Ketones Negative (Negative); Urine Protein Trace mg/dL (Neg-Trace)
[2024-02-11 13:28] LABS: Bacteria Urine 2+ (None Seen); Calcium Oxalate Crystals Urine Present; Hyaline Casts Urine 0-2 /LPF (0-2); RBC Urine 0-2 /HPF (0-2); UACC Culture Trigger YES; WBC Urine >50 /HPF (0-5)
== END 2024-02-11 09:23 | disposition home or self-care (01) ==
LOC: HO.HMGCLDS 09:22
PROVIDERS: PCP Internal Medicine; Visit Provider Internal Medicine
DX: N39.0 Urinary tract infection, site not specified (principal); R41.0 Disorientation, unspecified; I10 Essential (primary) hypertension
CPT/HCPCS: 81001; 87086; 99212

== ENCOUNTER 2024-02-11 09:22 | Outpatient (AMB) | payer MEDICARE, SELFPAY ==
--- NOTE | 2024-02-11 09:24 | A.OFFPC_ITS ---
Vital Signs 02/11/24 09:26 Height 4 ft 11 in Weight 100 lb BMI 20.2 BP 152/68 H Blood Pressure Location Rt brachial Position Sitting Pulse 94 Pulse Source Pulse Oximeter Pulse Oximetry (%) 99 Oxygen Delivery Method Room Air Intake Visit Reasons: Urinary tract infection Allergies epinephrine [EPINEPHRINE] Allergy (Severe, Verified 02/11/24 09:35) CHEST POUNDING, palpitations, palpitations Qeovkus-EXB-JtY Reductase Inhibitor [WPVDVCO-ISC-ELU REDUCTASE INHIBITOR] Allergy (Intermediate, Verified 02/11/24 09:35) MUSCLE PAINS Ezetimbie Adverse Reaction (Unknown, Uncoded 02/10/24 12:47) Muscle pain Medication List - Last Reconciled 02/11/24 by Riaz Da Silva MD amlodipine 5 mg (2 x 2.5 mg) PO DAILY 90 days ascorbic acid (vitamin C) 500 mg PO DAILY aspirin (Adult Low Dose Aspirin) 81 mg PO DAILY cholecalciferol (vitamin D3) 62.5 mcg PO QAM coenzyme Q10 (Co Q-10) PO DAILY escitalopram oxalate 5 mg PO DAILY 90 days methimazole 10 mg PO DAILY metoprolol succinate ER 100 mg PO DAILY nitroglycerin 0.4 mg sublingual Q5M PRN omega-3 fatty acids (Fish Oil Concentrate) PO DAILY Tobacco use date assessed: 02/11/24 Fall risk assessment: No Falls in past year Last assessed Fall Risk: 02/11/24 Dental Screening Dental Screen Date: 02/11/24 Did you have a dental visit in the last 12 months?: No Did you have a dental problem in the last 6 months where you did not have access to dental care?: No Was dental information given to patient?: No HPI Urinary tract infection HPI Details Chief Complaint Recurrent urinary tract infections and associated confusion Assessment and Plan 88-year-old female with a history of uri nary tract infections presenting with recurrent confusion and urinary symptoms. The patient has experienced confusion previously, which was noted during a recent trip to [place], and was found to have a urinary tract infection at that time. Subsequent treatment with antibiotics appeared temporarily effective, but symptoms recurred. The patient was treated again with antibiotics without prior urinalysis or culture. Given the recurrent nature of these symptoms and lack of definitive prior diagnostic evaluation, reassessment with appropriate urine studies is necessary. The patient denies any associated fever, chills, nausea, vomiting, or back pain. There is also noted history of insufficient fluid intake. Previous blood pressure readings were normal; however, mild hypertension is observed today, potentially stress- induced. There is no reported discomfort or pain of significant intensity despite the urge for frequent urination. 1. Urinary Tract Infection Recurrent Previous antibiotic treatment was with nitrofurantoin; however, without prior culture, efficacy is uncertain. A urinalysis and urine culture are ordered to better tailor antibiotic therapy. Pending culture results, an alternative antibiotic (sulfonamide) will be considered given the likelihood of repeated infection, assuming no allergic reactions are reported. 2. Mild Hypertension Observed mild hypertension during the visit is possibly stress-related. Monitoring and re-evaluation of blood pressure are planned without immediate pharmacological intervention. 3. Confusion Secondary To Urinary Tract Infection Confusion episodes are considered secondary to recurrent urinary tract infections. Further workup for urinary tract infections, as outlined, should address this issue if infections are confirmed. If confusion persists beyond treatment, a neurology or geriatrics consult may be required. Problem List - Urinary Tract Infection (Recurrent) - Confusion (secondary to Urinary Tract Infection) - Mild Hypertension Patient Instructions - Complete the ordered urine tests at e lab next door and await further instructions based on results. - Increase daily fluid intake, particula rly water, as current intake is insufficient. - Avoid caffeinated beverages due to the ir diuretic effect. - Observe and report any significant kyle nges in confusion or new symptoms to the healthcare provider. - Continue monitoring blood pressure; re cord readings regularly if possible. [facility] Medical History Cognitive and behavioral changes Family history of Alzheimer's disease Difficulty hearing CAD (coronary artery disease) PAC (premature atrial contraction) HTN (hypertension) Surgical History H/O thyroidectomy Hx of cardiac cath Family History Father CVD (cardiovascular disease) Mother No problems noted. Social History Housing: House Patient Tobacco Use Status: Never used Tobacco e-Cigarette/Vaping Use: Never Used Second Hand Smoke Exposure: No service: No Current occupational status: retired Cognitive needs: No Hearing needs: No Vision needs: Yes Questionnaire Thrive Questionnaire Date Thrive assessed: 12/12/23 I am a: Parent/Caregiver What is your living situation today?: I have a steady place to live Within the past 12 months, did the food you bought not last and you didn't have the money to get more?: Never true Within the past 12 months, did you worry whether your food would run out before you got money to buy more?: Never true Do you have trouble paying for medicines?: No Do you have trouble getting transportation to medical appointments?: No Do you have trouble paying your heating and electricity bill?: No Do you have trouble taking care of your child, family member or friend?: No Do you have trouble with day-to-day activities such as bathing, preparing meals, shopping, managing finances, etc.?: No Are you currently unemployed and looking for a job?: No Are you interested in more education?: No Please select the resources that you would like help with: None Currently or been in a relationship where the following occur: No concerns reported THRIVE Score: 0 RC-7 AMB Questionnaire RC-7 Date RC - 7 assessed: 12/27/23 Source: Developed by Drs. Gutierrez Mays, Sarita Phipps, Omar Renteria and colleagues, with an educational belkis from [employer]. Review of Systems Const Denies chills and Denies fever(s) ENT Denies epistaxis and Denies nasal discharge Card Denies chest pain Resp Denies chest congestion, Denies cough and Denies hemoptysis GI Denies diarrhea and Denies nausea Skin/Breast Denies rash Neuro Reports no additional complaints Psych Reports no additional complaints Endo Reports no additional complaints Physical exam (Primary Care) Vital Signs: Last Vital Signs Pulse 94 02/11/24 09:26 BP 152/68 H 02/11/24 09:26 Pulse Ox 99 02/11/24 09:26 Oxygen Delivery Method Room Air 02/11/24 09:26 BMI result Body Mass Index 20.2 Tobacco/Smoking Status: Tobacco use Status Tobacco use date assessed 02/11/24 02/11/24 09:38 Patient Tobacco Use Status Never used Tobacco 02/11/24 09:25 e-Cigarette/Vaping Use Never Used 02/11/24 09:25 Thrive Assessment: Date of Thrive Assessment Date Thrive assessed 12/12/23 02/11/24 09:25 Currently or been in a relationship where the following occur: No concerns reported Const General: cooperative, comfortable and no acute distress [facility] Head: Yes normocephalic Eyes General: appearance normal, both eyes and all related structures Neck Neck: Yes supple Resp Effort & Inspection: normal respiratory effort, no cough and no stridor Cardio Rhythm: regular rhythm Heart sounds: S1 normal heart sound present and S2 normal heart sound present GI Other: No discomfort with pressure suprapubically General: Yes no CVA tenderness Back/Spine/Pelvis Back: no CVA tenderness Skin General skin exam: turgor normal Neuro General: tone normal and moves all extremities Extrem Right lower extremity: no edema Left lower extremity: no edema Coding Level of Care Code Est Pt Level 4 (78649) Diagnoses Dysuria R30.0 Frequency of urination R35.0 Confusion R41.0 Elevated blood pressure reading in office with diagnosis of hypertension I10 Assessment & Plan Assessment & Plan (1) Dysuria: Code(s): R30.0 - Dysuria Category: Medical (2) Frequency of urination: Code(s): R35.0 - Frequency of micturition Category: Medical (3) Confusion: Code(s): R41.0 - Disorientation, unspecified Category: Medical (4) Elevated blood pressure reading in office with diagnosis of hypertension: Code(s): I10 - Essential (primary) hypertension Category: Medical Plan Chief Complaint Recurrent urinary tract infections and associated confusion Assessment and Plan 88-year-old female with a history of urinary tract infections presenting with recurrent confusion and urinary symptoms. The patient has experienced confusion previously, which was noted during a recent trip to [place], and was found to have a urinary tract infection at that time. Subsequent treatment with antibiotics appeared temporarily effective, but symptoms recurred. The patient was treated again with antibiotics without prior urinalysis or culture. Given the recurrent nature of these symptoms and lack of definitive prior diagnostic evaluation, reassessment with appropriate urine studies is necessary. The patient denies any associated fever, chills, nausea, vomiting, or back pain. There is also noted history of insufficient fluid intake. Previous blood pressure readings were normal; however, mild hypertension is observed today, potentially stress- induced. There is no reported discomfort or pain of significant intensity despite the urge for frequent urination. 1. Urinary Tract Infection Recurrent Previous antibiotic treatment was with nitrofurantoin; however, without prior culture, efficacy is uncertain. A urinalysis and urine culture are ordered to better tailor antibiotic therapy. Pending culture results, an alternative antibiotic (sulfonamide) will be considered given the likelihood of repeated infection, assuming no allergic reactions are reported. 2. Mild Hypertension Observed mild hypertension during the visit is possibly stress-related. Monitoring and re-evaluation of blood pressure are planned without immediate pharmacological intervention. 3. Confusion Secondary To Urinary Tract Infection Confusion episodes are considered secondary to recurrent urinary tract infections. Further workup for urinary tract infections, as outlined, should address this issue if infections are confirmed. If confusion persists beyond treatment, a neurology or geriatrics consult may be required. Problem List - Urinary Tract Infection (Recurrent) - Confusion (secondary to Urinary Tract Infection) - Mild Hypertension Patient Instructions - Complete the ordered urine tests at the lab next door and await further instructions based on results. - Increase daily fluid intake, particularly water, as current intake is insufficient. - Avoid caffeinated beverages due to their diuretic effect. - Observe and report any significant changes in confusion or new symptoms to the healthcare provider. - Continue monitoring blood pressure; record readings regularly if possible. Orders: Orders UA CC w/rflx Micro + Cult Today R30.0 - Dysuria
[2024-02-11 09:26] VITALS: BP 152/68; PULSE 94; O2SAT 99; BMI 20.2
== END 2024-02-11 14:31 | disposition home or self-care (01) ==
PROVIDERS: PCP Internal Medicine; Visit Provider Internal Medicine
DX: R30.0 Dysuria (principal); R35.0 Frequency of micturition; R41.0 Disorientation, unspecified; I10 Essential (primary) hypertension

== ENCOUNTER 2024-02-12 13:11 | Outpatient (RCR) | payer MEDICARE, SELFPAY ==
--- NOTE | 2024-02-17 13:06 | MHC.SP.ADU ---
Referring provider: Steffany Palmer MD Reason for Referral: Memory issues Type of Treatment: 33495 Standardized Cognitive Performance Testing, per hour Date of Plan of Treatment: 02/12/24 Onset of Symptoms/Illness: 02/12/20 Date Treatment Started: 02/12/24 Medical Diagnosis: R41.89 Other symptoms and signs involving cognitive functions and awareness R46.89 Other symptoms and signs involving appearance and behavior Primary Speech Language Diagnosis: R41.841 Cognitive communication disorder History Mrs. Maryam Kee is an 88 year old female [facility] by Steffany Palmer MD of [facility] in [place], [place] with concerns of memory issues. She was accompanied to this evaluation by her daughter, Gabbi, who assisted in providing background information included in this report. Mrs. Kee?s daughters have noticed increased forgetfulness 4 years ago, with worsening cognition after her of Alzheimer?s 2 years ago. Indicated areas of difficulty include difficulty expressing thoughts, problem solving, focusing, and memory. Mrs. Kee reports past medical history including skin cancer, cardiac disease, hearing loss, heart attack, hypertension, and thyroid issues. Gabbi reports that Mrs. Kee has hearing aids, but did not wear them to this evaluation. Mrs. Kee prepares her own meals, and can shower and dress herself. She does have someone come to the home to help her manage her medications. Mrs. Kee is , lives alone, and has 5 adult children. She is retired from her career of nursing. She enjoys [employer] studies and spending time with family. Medical History: Other: Medical History Cognitive and behavioral changes Family history of Alzheimer's disease Difficulty hearing CAD (coronary artery disease) PAC (premature atrial contraction) HTN (hypertension) Surgical History H/O thyroidectomy Hx of cardiac cath Social History: Employment Status: Retired Current Living Situation: Alone in private residence Reported Speech, Language, Cognition difficulties: Memory, Cognition Tests of Cognition: RBANS Clinical Impression: Impaired Observations: Mrs. Steele cognitive linguistic skills were evaluated using the RBANS: The Repeatable Battery for the Assessment of Neuropsychological Status (RBANS-Updated Form A). The RBANS assesses aspects of cognitive memory, language, and attention skills. The RBANS is considered a screening battery for cognitive function used with adolescents and adults, ages 12 to 89 years. Composite domains assessed in this evaluation are: Immediate Memory, Visuospatial/Constructional, Language, Attention, and Delayed Memory. Assessed domains and their scores are summarized below: IMMEDIATE MEMORY: These subtests assess an individual?s ability to remember a small amount of information immediately after it is presented. Mrs. Kee was presented with a list of 10 spoken words and was instructed to repeat back as many words as she could remember from the list (List Learning). She initially recalled 1 item from the list of 10. After 3 repetitions, she recalled up to 5 items on the list, indicating that verbal repetition seems to facilitate her recall to some degree. After listening to a spoken paragraph, Mrs. Kee was instructed to re-tell the story with as much detail as she could remember (Story memory). She seemed to have an easier time recalling details from a narrative as compared to her recall of unrelated words. List Learning Total Score: 13 Scaled Score: 3 Percentile Rank: 1st Interpretation: Extremely Low Story Memory Total Score: 10 Scaled Score: 5 Percentile Rank: 5th Interpretation: Borderline Immediate Memory Index score: 65 Percentile Rank: 3rd Interpretation: Extremely Low VISUOSPATIAL/CONSTRUCTIONAL: These subtests assess an individual?s visuospatial skills and perception of spatial relationships. Mrs. Kee was first instructed to draw an accurate copy of a figure presented to her (Figure Copy). Mrs. Kee did well with this task and included most components in her copy with accurate placement. Next, Mrs. Kee was instructed to identify lines that matched based on orientation and placement. She exhibited no difficulty with this task either. Visuo-spatial skills are a relative strength of hers. Figure Copy Total Score: 18 Scaled Score: 11 Percentile Rank: 63rd Interpretation: Average Line Orientation Total Score: 17 Percentile Group: 51-75 Interpretation: Average Visuospatial/Constructional Index score: 109 Percentile Rank: 73rd Interpretation: Average LANGUAGE: These subtests assess an individual?s word retrieval skills. Mrs. Kee correctly named line images in 9 out of 10 trials during a confrontational naming task (Picture Naming). She mis-named uncommon target word cardoso as ?missile.? She was also instructed to name as many fruits and vegetables as she can in 60 seconds (Semantic Fluency) and named 12 relevant items in this category. She perseverated on some words, repeating ?onions? and ?potatoes? several times. Mrs. Kee?s performance on these subtests is consistent with self-report, as she denies having word retrieval difficulty. Picture Naming Total Score: 9 Percentile Group: 26-50 Interpretation: Average Semantic Fluency Total Score: 12 Scaled Score: 6 Percentile Rank: 9th Interpretation: Low Average Language Index score: 92 Percentile Rank: 30th Interpretation: Average ATTENTION: These subtests assess an individual?s capacity to remember and manipulate both visually and orally presented information in short-term memory storage. Mrs. Kee was first instructed to repeat back number series that were between 2-9 digits long (Digit Span). She recalled digit series of up to 7 digits. Mrs. Kee was also instructed to code markings with numbers (Coding). She coded 29 markers, making no errors. No difficulties identified in this area. Attention is another area of strength of Mrs. Kee?s. Digit Span Total Score: 12 Scaled Score: 14 Percentile Rank: 91st Interpretation: Superior Coding Total Score: 29 Scaled Score: 8 Percentile Rank: 25th Interpretation: Average Attention Index score: 106 Percentile Rank: 66th Interpretation: Average DELAYED MEMORY: These subtests assess an individual?s retrieval of information from long-term memory. Mrs. Kee exhibited difficulty recalling information that was presented to her at the beginning of the testing period. She could not recall any items from the list nor details from the story that was presented to her previously. She also exhibited difficulty recognizing items from the list as they were presented to her. List Recall Total Score: 0 Percentile Group: 3-9 Interpretation: Borderline List Recognition Total Score: 11 Percentile Group: <2 Interpretation: Extremely Low Story Recall Total Score: 0 Scaled Score: 2 Percentile Rank: 0.4 Interpretation: Extremely Low Figure Recall Total Score: 0 Scaled Score: 1 Percentile Rank: 0.1 Interpretation: Extremely Low Delayed Memory Index Score: 40 Percentile Rank: 0.1 Interpretation: Extremely Low Sum of Index Scores: 412 Total Scale: 78 Percentile: 7th Interpretation: Borderline Cognitive Linguistic Skills Denia Shetty (1998). Repeatable Battery for the Assessment of Neuropsychological Status [Manual]. AYESHA Ribera: Ghada. Impressions and Recommendations Summary: On assessment today, Mrs. Kee presented with a mild cognitive linguistic impairment, with strengths identified in the areas of attention, language, and visuospatial skills. She exhibited moderate difficulties with immediate and delayed recall of verbally and visually presented information. This is consistent with Mrs. Kee?s family report. Mrs. Kee?s daughters expressed concern that she often repeats questions, has trouble remembering conversations, and loses her keys and checkbook. She is able to remember phone numbers, but frequently mixes up family member names. These difficulties are impacting Mrs. Kee on a functional level, including her social engagement and completion of daily activities. Mrs. Kee is recommended a trial of outpatient speech therapy targeting compensatory strategies to facilitate short term memory. Impact on Daily Function/Activity Limitations: Daily Activities: Mild Interpersonal Interactions: Mild Education: Employment: Community: Mild Prognosis for Improvement: Fair Recommendation for Speech Therapy: Outpatient Speech Therapy Frequency/Duration: 1x weekly x 12 weeks Time to Reassess: 3 months Ticket Manager Goals: Mrs. Kee will utilize compensatory strategies to assist (immediate and delayed) short-term memory in 80% of opportunities independently. Short Term Goals: Goal # : 1.1. Mrs. Kee will use internal memory strategies (i.e. rehearsal, association, visualization) to recall 4 or more items (i.e. grocery list, medication list, etc.) after a 30 minute delay at 80% accuracy when provided with minimal verbal cues. Goal Status: New Goal Goal# : 1.2. Mrs. Kee will write down relevant notes while presented with auditory instructions (i.e. voicemail message) and recall 80% of the information given use of written notes only. Goal Status: New Goal Goal # : 1.3. Mrs. Kee will electively use an michelle or tech device to record and retrieve needed information in 4 out of 5 contexts with minimal verbal prompting. Goal Status: New Goal Goal # : 1.4. Mrs. Kee will complete a daily journal given occasional moderate cues. 1.5. Mrs. Kee will recall 4/5 memory strategies given minimal verbal cues. Goal Status: New Goal Recommended Referrals to be Discussed with Primary Care Provider: Neurology Patient Education: Completed: Yes Patient/Caregiver Education: Described Results of Evaluation Patient expressed understanding of evaluation Family/Caregivers expressed understanding of results Patient requires further education on strategies Comments/Barriers to Learning: It was a pleasure meeting Mrs. Kee and her family. Please do not hesitate to contact the [facility] if we can be of further assistance in her care. Senior Buyer Planner Clinican/Clinical Fellow: No Supervisory Statement: N/A Speech Language Pathologist: Genevieve Mccrary M.A., CCC-SIZING END BANDER
== END 2024-02-17 14:02 | disposition still patient (30) ==
LOC: HO.SH 13:11
PROVIDERS: PCP Internal Medicine; Visit Provider Psychiatry & Neurology Neurology
DX: R41.89 Other symptoms and signs involving cognitive functions and awareness (principal); R46.89 Other symptoms and signs involving appearance and behavior
CPT/HCPCS: 96125

== ENCOUNTER 2024-03-13 08:39 | Outpatient (REF) | payer MEDICARE, SELFPAY | END 2024-03-13 08:40 | disposition home or self-care (01) | LOC: HO.LAB 08:39 | PROVIDERS: PCP Internal Medicine | DX: R39.89 Other symptoms and signs involving the genitourinary system (principal) | CPT/HCPCS: 81003; 87086; 99212 ==

== ENCOUNTER 2024-03-13 08:39 | Outpatient (AMB) | payer MEDICARE, SELFPAY ==
--- NOTE | 2024-03-13 09:51 | AM.OFFWIN_ITS ---
Intake Vital Signs 03/13/24 09:59 Weight 98 lb 6 oz BP 122/70 Blood Pressure Location Lt brachial Position Sitting Pulse 78 Pulse Source Pulse Oximeter Pulse Oximetry (%) 98 Oxygen Delivery Method Room Air Intake Visit Reasons: EP ? UTI Intake Note: Patient here for pressure in bladder that started about 3-4 days ago. Patient Tobacco Use Status: Never used Tobacco Allergies epinephrine [EPINEPHRINE] Allergy (Severe, Verified 03/13/24 10:00) CHEST POUNDING, palpitations, palpitations Ehytfsu-KJR-LgQ Reductase Inhibitor [HOMFTMX-GEI-QVF REDUCTASE INHIBITOR] Allergy (Intermediate, Verified 03/13/24 10:00) MUSCLE PAINS Ezetimbie Adverse Reaction (Unknown, Uncoded 03/13/24 10:00) Muscle pain Do you need a note to return to daycare/school/sports/work: No HPI EP ? UTI HPI Details This is an 88-year-old female patient who presents today with her son Jonnie present for report of 3-4 days of sensation of pressure in her bladder. Denies any urinary frequency, urgency, dysuria. Denies any abnormal color or odor to urine. Denies any fever/chills/confusion. History of multiple UTIs. [facility] Medical History Cognitive and behavioral changes Family history of Alzheimer's disease Difficulty hearing CAD (coronary artery disease) PAC (premature atrial contraction) HTN (hypertension) Surgical History H/O thyroidectomy Hx of cardiac cath Family History Father CVD (cardiovascular disease) Mother No problems noted. Social History Housing: House Patient Tobacco Use Status: Never used Tobacco e-Cigarette/Vaping Use: Never Used Second Hand Smoke Exposure: No service: No Current occupational status: retired Cognitive needs: No Hearing needs: No Vision needs: Yes Review of Systems Const All systems reviewed & are unremarkable except as noted in HPI and below Physical Exam Vital Signs: Last Vital Signs Pulse 78 03/13/24 09:59 BP 122/70 03/13/24 09:59 Pulse Ox 98 12/27/24 09:59 Oxygen Delivery Method Room Air 03/13/24 09:59 Const General: cooperative, healthy appearing and no acute distress Limitations: no limitations HEENT Head: Yes normal to inspection Resp Effort & Inspection: normal respiratory effort Auscultation: clear to auscultation bilaterally Cardio Rate: regular rate Rhythm: regular rhythm General: Yes bladder normal to palpation and Yes no CVA tenderness Bimanual exam- vagina & uterus: bladder normal to palpation Back/Spine/Pelvis Back: no CVA tenderness Skin General skin exam: no rashes or lesions noted Extrem General: Yes no clubbing, cyanosis or edema Psych Appearance: grossly normal Mental Status: mental status grossly normal Speech and movement: Normal speech and movement present Results AMB Urinalysis, Automated UA Leukoctes 70 Rose/uL Last Edit by ORTEGA Dunlap on 03/13/24 09:5 2 UA Nitrite Negative Last Edit by ORTEGA Dunlap on 03/13/24 09:52 UA Urobilinogen 0.2 mg/dL Last Edit by ORTEGA Dunlap on 03/13/24 09:52 UA Protein 0 mg/dL Last Edit by ORTEGA Dunlap on 03/13/24 09:52 UA pH 6.0 Last Edit by ORTEGA Dunlap on 03/13/24 09:52 UA Blood 0 Gallo/uL Last Edit by Munira Silveira CCM on 03/13/24 09:52 UA Specific [place] 1.020 Last Edit by ORTEGA Dunlap on 03/13/24 09:52 UA Ketone Negative Last Edit by ORTEGA Dunlap on 03/13/24 09:52 UA Bilirubin 0 mg/dL Last Edit by ORTEGA Dunlap on 03/13/24 09:52 UA Glucose 0 mg/dL Last Edit by Munira Silveira CCM on 03/13/24 09:52 Results Reviewed Results Reviewed: Laboratory Last Values Urine pH (Auto) 6.0 03/13/24 09:51 Specific [place] (Auto) 1.020 03/13/24 09:51 Urine Protein (Auto) 0 mg/dL 03/13/24 09:51 Glucose (UA)(Auto) 0 mg/dL 03/13/24 09:51 Urine Ketones (Auto) Negative 03/13/24 09:51 Urine Blood (Auto) 0 Gallo/uL 03/13/24 09:51 Urine Nitrite (Auto) Negative 03/13/24 09:51 Urine Bilirubin (Auto) 0 mg/dL 03/13/24 09:51 Urine Urobilinogen (Auto) 0.2 mg/dL 03/13/24 09:51 Leukocyte Esterase (Auto) 70 Rose/uL 03/13/24 09:51 Assessment & Plan Assessment & Plan (1) Sensation of pressure in bladder area: Code(s): R39.89 - Other symptoms and signs involving the genitourinary system Plan Urine dip in office not strongly suggestive UTI. Patient only has mild bladder pressure, and no other symptoms. Has had multiple courses of antibiotics over the last several months. We will send urine culture and await results. In the meantime, will start her on Pyridium for symptomatic treatment at this time. Reviewed indications, use, possible side effects of this medication. Encouraged increased hydration, as patient admittedly does not drink much fluids. Advised to return to the clinic if she develops any worsening symptoms, dysuria, urine urgency or frequency, or fever/chills or confusion. Patient and son present at visit both verbalize understanding and agreed to plan discussed today. Orders: Orders AMB Urinalysis Automated Today Z13.9 - Encounter for screening, unspecified Urine Culture Today R39.89 - Other symptoms and signs involving the genitourinary system Medications: New phenazopyridine Take one tablet twice a day by mouth as needed for bladder pressure. 200 mg PO BID 4 days PRN 8 tabs 0RF pain R39.89 - Other symptoms and signs involving the genitourinary system Coding Level of Care Code Est Pt Level 4 (65892) Diagnoses Sensation of pressure in bladder area R39.89
[2024-03-13 09:59] VITALS: BP 122/70; PULSE 78; O2SAT 98
== END 2024-03-13 10:22 | disposition home or self-care (01) ==
PROVIDERS: PCP Internal Medicine; Visit Provider Nurse Practitioner Family
DX: R39.89 Other symptoms and signs involving the genitourinary system (principal); Z13.9 Encounter for screening, unspecified

== ENCOUNTER 2024-04-01 08:19 | Outpatient (REF) | payer MEDICARE, SELFPAY ==
[2024-04-01 09:49] LABS: Free T4 (Free Thyroxine) 1.07 ng/dL (0.71-1.85); Thyroid Stimulating Hormone 0.66 uIU/mL (0.32-4.0)
[2024-04-02 08:34] LABS: Triiodothyronine T3 Free 2.9 pg/mL (2.3-4.2)
== END 2024-04-01 08:20 | disposition home or self-care (01) ==
LOC: HO.LAB 08:19
PROVIDERS: Absent Provider Internal Medicine Endocrinology, Diabetes & Metabolism; PCP Internal Medicine; Visit Provider Internal Medicine
DX: R79.89 Other specified abnormal findings of blood chemistry (principal)
CPT/HCPCS: 36415; 84439; 84443; 84481

== ENCOUNTER 2024-05-11 13:17 | Outpatient (AMB) | payer MEDICARE, SELFPAY ==
--- NOTE | 2024-05-11 13:27 | A.OFFVIS_ITS ---
Vital Signs 05/11/24 13:29 Height 4 ft 11 in Weight 101 lb 6.602 oz BMI 20.5 BP 116/54 L Blood Pressure Location Rt brachial Position Sitting Pulse 71 Pulse Source Pulse Oximeter Pulse Oximetry (%) 99 Oxygen Delivery Method Room Air Intake Visit Reasons: f/u hyperthyroidism Intake Note: Patient present today for other specified abnormal findings of blood. Supervisory Historian Required: No Accompanied by: Daughter Allergies epinephrine [EPINEPHRINE] Allergy (Severe, Verified 05/11/24 13:30) CHEST POUNDING, palpitations, palpitations Mdbyrgl-FHU-VbR Reductase Inhibitor [JTBABOM-RQN-GXK REDUCTASE INHIBITOR] Allergy (Intermediate, Verified 05/11/24 13:30) MUSCLE PAINS Ezetimbie Adverse Reaction (Unknown, Uncoded 05/11/24 13:30) Muscle pain Medication List - Last Reconciled 05/11/24 by Gutierrez Britt MD amlodipine 5 mg (2 x 2.5 mg) PO DAILY 90 days ascorbic acid (vitamin C) 500 mg PO DAILY aspirin (Adult Low Dose Aspirin) 81 mg PO DAILY cholecalciferol (vitamin D3) 62.5 mcg PO QAM coenzyme Q10 (Co Q-10) PO DAILY escitalopram oxalate 5 mg PO DAILY 90 days levofloxacin 500 mg PO DAILY 5 days methimazole 10 mg PO DAILY metoprolol succinate ER 100 mg PO DAILY nitroglycerin 0.4 mg sublingual Q5M PRN omega-3 fatty acids (Fish Oil Concentrate) PO DAILY phenazopyridine 200 mg PO BID PRN 4 days HPI Comments Details: 88 YO F with PMHx [] who is seen in consultation for suppressed TSH the request of PCP. 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 Denies sensation of swelling in the neck or difficulty breathing while lying flat. Denies any tenderness in the neck. Denies any palpitations, tremors, weight loss, frequent bowel movements. Denies any ocular complaints, blurred or double vision. Denies use of amiodarone Denies use of recent iodinated contrast dye Denies any history of head or neck irradiation. Denies any family history of thyroid cancer. Denies use of biotin Thyroid US: Labs: Currently on methimazole 10 mg q.d. [facility] Medical History Cognitive and behavioral changes Family history of Alzheimer's disease Difficulty hearing CAD (coronary artery disease) PAC (premature atrial contraction) HTN (hypertension) Surgical History H/O thyroidectomy Hx of cardiac cath Family History Father CVD (cardiovascular disease) Mother No problems noted. Social History Housing: House Patient Tobacco Use Status: Never used Tobacco e-Cigarette/Vaping Use: Never Used Second Hand Smoke Exposure: No service: No Current occupational status: retired Cognitive needs: No Hearing needs: No Vision needs: Yes Physical Exam Vital Signs: Last Vital Signs Pulse 71 05/11/24 13:29 BP 116/54 L 05/11/24 13:29 Pulse Ox 99 05/11/24 13:29 Oxygen Delivery Method Room Air 05/11/24 13:29 BMI result Body Mass Index 20.5 Const Other: Thyroid gland is normal size weighs about 15 g . There are no thyroid nodules palpated Assessment & Plan Assessment & Plan (1) Low TSH level: Code(s): R79.89 - Other specified abnormal findings of blood chemistry Category: Medical Plan: This 88-year-old female found to have Graves disease and hyperthyroidism. Patient is currently on methimazole 10 mg q.d. she appears to be clinically and biochemically euthyroid Plan is to continue the current management. . Went over different options of treatment including the continued use of anti-thyroid medication versus radioactive therapy Versus surgery. considering patient's age and comorbidities standing on the methimazole is probably the most reasonable thing to do Orders: Orders Free T4 (Free Thyroxine) 5 Months R7. - Other specified abnormal findings of blood chemistry Thyroid Stimulating Hormone 5 Months R7 - Other specified abnormal findings of blood chemistry Triiodothyronine T3 Free 5 Months R7 - Other specified abnormal findings of blood chemistry Coding Level of Care Code Est Pt Level 3 (77815) Diagnoses Low TSH level R789
[2024-05-11 13:29] VITALS: BP 116/54; PULSE 71; O2SAT 99; BMI 20.5
--- OUTSIDE RECORDS SUMMARY | 2024-05-11 15:13 | XMS_ITS | Patient Health Record ---
Author Organization [facility] Address [address] [place] [address] Care Team Providers Care Carpenter Form Name Role Phone Avinash PARK, Asma Primary Care Provider Kamlesh Hopson Unavailable [phone] Allergies Allergen (clinical drug ingredient) Drug/Non Drug Allergy documented on EMR Reaction Allergy Type Onset Date Status EPINEPHrine tachycardia Drug Allergy Act chelsie Novocain tachycardia Drug Allergy Activ e Substance with 9-cdtwhwd-2-methylglu taryl-coenzyme A reductase inhibitor mechanism of action (substance) Statins muscle pain Drug Allergy Active Reason For Referral No Information Medications Medication SIG (Take, Route, Frequency, Duration) Notes Start Date End Date Status Hair/Skin/Nails Unkn own Vitamin D3 1000 UNIT 1 tablet Orally Onc e a day Unknown Furosemide 20 MG 1 tablet Orally Once a day Unknown Aspirin 325 MG Orally Unkno wn CoQ-10 100 MG 1 capsule with a willy l Orally Once a day Unknown Metoprolol Succinate ER 100 MG 1 tablet Orally Once a day Unknown Vitamin C 1000 MG 1 tablet Orally Once a day Unknown Fish Oil 1000 MG 1 capsule Orally Onc e a day Unknown Folic Acid 400 MCG 1 tablet Orally Once a day Unknown Zetia Unknown Multivitamin & Mineral Orally Unknown Social History Tobacco Use: Social History Observation Description Date Details (start date - stop date) Never Smoker NA - NA Tobacco Use/Smoking Question Answer Notes Are you a: nonsmoker Alcohol Screen Question Answer Notes Did you have a drink containing alcohol in the p ast year? Yes Points 0 Interpretation Negative Tobacco use other than smoking: Question Answer Notes Are you an other tobacco user? No Problems Problem Type SNOMED Code ICD Code Onset Dates Problem Status W/U Status Risk Notes Problem Localized, primary osteoarthritis of the ankle and/or foot ([id number]) Primary osteoarthrit is, right ankle and foot (M19.071) Active confirmed Problem Acquired hammer toe of right foot ([id number]) Other hammer toe(s) (acquired), right foot (M20.41) Active confirmed Plan Of Treatment No Information Insurance Providers Payer Name Payer Address Payer Phone Subscriber Number Group Number Insured Name Patient Relationship to Insured Coverage Start Date Coverage End Date Medicare National [employer] [address] [place] [address] [id number] Maryam Kee Self - patient is the insured 0 [employer] [address] [place] [address] [id number] Maryam Kee Self - patient is the insured Medical (General) History Medical History History ICD Code Angina Cholesterol skin cancer Heart disease High blood pressure Warts Measles Chicken pox Joint implants/screws thyroid Skin cancer Surgical History Surgery Date(Month/Year) adenoma of thyroid 1967 breast biopsy 1969 skin cancer removed from face 10/13/2013
== END 2024-05-11 13:58 | disposition home or self-care (01) ==
PROVIDERS: PCP Internal Medicine; Visit Provider Internal Medicine Endocrinology, Diabetes & Metabolism
DX: R79.89 Other specified abnormal findings of blood chemistry (principal)
CPT/HCPCS: 99213